=== PATIENT | female | born 1960 | race African-American/Black ===

== ENCOUNTER 2020-12-03 11:11 | Emergency (ER) | payer OTHER ==
[~2020-12-03] VITALS: Ht 154.9 cm; Wt 77.1 kg
[2020-12-03] MEDS ORDERED: ONDANSETRON 4 MG ODT PO ONE (11:15)
[2020-12-03 11:21] VITALS: BP 140/75
[2020-12-03] MEDS ORDERED: GLYCOPYRROLATE 1 MG TAB GT SCH (16:20)
[2020-12-03] MEDS ORDERED: MELATONIN 3 MG TAB GT PRN (16:20)
[2020-12-03] MEDS ORDERED: ACETAMINOPHEN EXTRA STRENGTH 500 MG TAB PEG ONE (16:20)
[2020-12-03] MEDS ORDERED: BACLOFEN 10 MG TAB GT SCH (17:00)
[2020-12-03] MEDS ORDERED: ACETAMINOPHEN EXTRA STRENGTH 500 MG TAB ONE (17:23)
[2020-12-03] MEDS ORDERED: CRUSHER, PILL MC ONE (17:29)
[2020-12-03 17:44] VITALS: BP 122/75
== END 2020-12-03 17:52 ==
LOC: EDBD 11:11 → MED 11:11
DX: R11.2 Nausea with vomiting, unspecified (principal); K94.23 Gastrostomy malfunction; F03.90 Unspecified dementia, unspecified severity, without behavioral disturbance, psychotic disturbance, mood disturbance, and anxiety; R13.10 Dysphagia, unspecified
CPT/HCPCS: 74240; 99284; Q0162; Q9967

== ENCOUNTER 2021-04-13 09:27 | Inpatient (IN) | payer OTHER, SELFPAY ==
[~2021-04-13] VITALS: Ht 149.9 cm; Wt 56.7 kg
[2021-04-13 09:27] VITALS: BP 95/60
[~2021-04-13 09:27] MED LIST: ACET-2619 GT; ASPI-1822 GT; BACL10TA4 GT; BISA-213 RC; CHLO118S2 TP; DEXT5SYR3 PO; DIT5 GT; FERR75LI22 GT; FLEPED RC; FLOR250 GT; INSU100I7 SQ; MAG-27 GT; MAGN400S60 GT; MELA5SGL GT; MERO1PDS8 IV; MIRABULK GT; MULT-2253 GT; MUPI2CRE22 NS; ROB1 GT; SLIDE SUBQ; VITA-16 GT
[2021-04-13] MEDS ORDERED: FLOR250 GT (10:09)
[2021-04-13] MEDS ORDERED: MELA1TAB32 GT (10:09)
[2021-04-13] MEDS ORDERED: ROB1 GT (10:09)
[2021-04-13] MEDS ORDERED: ACET-9882 GT (10:09)
[2021-04-13] MEDS ORDERED: CHOL100037 GT (10:09)
[2021-04-13] MEDS ORDERED: SCOP1PAT TP (10:09)
[2021-04-13] MEDS ORDERED: TAMS0.4C96 GT (10:09)
[2021-04-13] MEDS ORDERED: NACL 0.9% 1,000 ML IV ONE (10:25)
[2021-04-13 11:04] LABS: BASOPHILS # (AUTO) 0.1 K/uL (0.00-0.22); BASOPHILS % (AUTO) 0.8 % (0.0-2.0); EOSINOPHILS # (AUTO) 0.3 K/uL (0-0.4); EOSINOPHILS % (AUTO) 3.9 % (0.0-4.0); HEMATOCRIT 36.4 % (36-48); HEMOGLOBIN 11.4 g/dL (12.0-16.0); LYMPHOCYTES # (AUTO) 2.8 K/uL (2.5-16.5); MEAN CORPUSCULAR HEMOGLOBIN 26 pg (27-31); MEAN CORPUSCULAR HGB CONC 31 g/dL (33-37); MEAN CORPUSCULAR VOLUME 82.3 fL (80-94); MONOCYTES # (AUTO) 0.8 K/uL (0.8-1.0); MONOCYTES % (AUTO) 9.8 % (1.7-9.3); NEUTROPHILS # (AUTO) 4.3 K/uL (1.8-7.7); NEUTROPHILS % (AUTO) 51.5 % (42.2-75.2); PLATELET COUNT (AUTO) 351 K/uL (140-450); RED BLOOD CELL COUNT(AUTO) 4.43 MIL/uL (4.20-5.40); RED CELL DISTRIBUTION WIDTH 18.7 % (11.6-13.7); WHITE BLOOD COUNT (AUTO) 8.3 K/uL (4.8-10.8)
[2021-04-13 11:16] LABS: APPEARANCE,URINE CLOUDY (CLEAR); BILIRUBIN,URINE 2+ (NEGATIVE); BLOOD, URINE 3+ (NEGATIVE); LEUKOCYTE ESTERASE ,URINE 3+ (NEGATIVE); NITRITE, URINE POSITIVE (NEGATIVE); UGLUCOSE 1+ (NEGATIVE)
[2021-04-13 11:19] LABS: COLOR,URINE LIGHT PINK (YELLOW)
[2021-04-13 11:20] LABS: PROTHROMBIN TIME 10.3 secs (10.8-13.4)
[2021-04-13 11:23] LABS: ALBUMIN 2.5 g/dL (3.4-5.0); ANION GAP 16.3 (8-16); CARBON DIOXIDE 25.8 mmol/L (21-32); CREATININE 0.8 mg/dL (0.6-1.3); POTASSIUM 4.1 mmol/L (3.5-5.1); TOTAL BILIRUBIN 0.3 mg/dL (0.0-1.0)
[2021-04-13 11:26] LABS: WBC,URINE 20-60 /HPF (0-5)
[2021-04-13 11:27] LABS: RBC,URINE 80-100 /HPF (0-5)
[2021-04-13] MEDS ORDERED: ACETAMINOPHEN 325 MG TAB PO PRN (12:05)
[2021-04-13] MEDS ORDERED: ZOLPIDEM 5 MG TAB PO PRN (12:05)
[2021-04-13] MEDS: NACL 0.9% 1,000 ML IV SCH (12:05)
[2021-04-13] MEDS ORDERED: guaiFENesin DM 200/20 MG-10 ML 10 ML UDC PO PRN (12:05)
[2021-04-13] MEDS ORDERED: DOCUSATE SODIUM 100 MG GELCAP PO PRN (12:05)
[2021-04-13] MEDS ORDERED: ONDANSETRON 4 MG/2 ML VIAL IM/IVP PRN (12:05)
[2021-04-13] MEDS ORDERED: INSULIN LISPRO SLIDING SCALE 100 UNITS/ML VIAL SUBQ PRN (12:10)
[2021-04-13] MEDS ORDERED: DEXTROSE 50% 50 ML SYR IVP PRN (12:10)
[2021-04-13] MEDS ORDERED: ZOLPIDEM 5 MG TAB GT PRN (12:11)
[2021-04-13] MEDS ORDERED: ACETAMINOPHEN 650 MG/20.3 ML UDC GT PRN (12:15)
[2021-04-13] MEDS ORDERED: guaiFENesin DM 200/20 MG-10 ML 10 ML UDC GT PRN (12:18)
[2021-04-13] MEDS ORDERED: DOCUSATE 100 MG/10 ML UDC GT PRN (12:20)
[2021-04-13] MEDS ORDERED: POTASSIUM CHLORIDE 20% 40 MEQ/15 ML UDC GT PRN (12:25)
[2021-04-13 12:34] LABS: CHOL/HDL RATIO 4.6 (1-4.5); FREE T4 (FREE THYROXINE) 0.91 ng/dL (0.76-1.46); PHOSPHORUS 3.6 mg/dL (2.5-4.9); THYROID STIMULATING HORMONE 1.03 uIU/mL (0.34-3.74)
[2021-04-13 12:50] VITALS: BP 121/60
[2021-04-13] MEDS: PIPERACILLIN/TAZOBACTAM 3.375 GM in DEXTROSE 5% 50 ML IV SCH ×2 (13:00→21:09)
[2021-04-13] MEDS: BLOOD GLUCOSE MONITORING 1 DEV DEV FS SCH ×2 (16:30→21:08)
[2021-04-13 20:00] VITALS: BP 131/99
[2021-04-14] VITALS: BP 112/57
[2021-04-14] MEDS: NACL 0.9% 1,000 ML IV SCH ×2 (00:35→12:53)
[2021-04-14 04:00] VITALS: BP 111/60
[2021-04-14] MEDS: PIPERACILLIN/TAZOBACTAM 3.375 GM in DEXTROSE 5% 50 ML IV SCH ×3 (05:25→21:00)
[2021-04-14 05:39] LABS: ANION GAP 12.8 (8-16); CREATININE 0.8 mg/dL (0.6-1.3); POTASSIUM 3.8 mmol/L (3.5-5.1)
[2021-04-14 06:44] LABS: BASOPHILS # (AUTO) 0.1 K/uL (0.00-0.22); BASOPHILS % (AUTO) 0.9 % (0.0-2.0); EOSINOPHILS # (AUTO) 0.3 K/uL (0-0.4); EOSINOPHILS % (AUTO) 3.7 % (0.0-4.0); HEMATOCRIT 32.9 % (36-48); HEMOGLOBIN 10.4 g/dL (12.0-16.0); LYMPHOCYTES # (AUTO) 2.1 K/uL (2.5-16.5); LYMPHOCYTES % (AUTO) 27.8 % (20.5-51.1); MEAN CORPUSCULAR HEMOGLOBIN 26 pg (27-31); MEAN CORPUSCULAR HGB CONC 32 g/dL (33-37); MEAN CORPUSCULAR VOLUME 81.9 fL (80-94); MONOCYTES # (AUTO) 0.8 K/uL (0.8-1.0); MONOCYTES % (AUTO) 10.6 % (1.7-9.3); NEUTROPHILS # (AUTO) 4.3 K/uL (1.8-7.7); PLATELET COUNT (AUTO) 332 K/uL (140-450); RED BLOOD CELL COUNT(AUTO) 4.02 MIL/uL (4.20-5.40); RED CELL DISTRIBUTION WIDTH 19.1 % (11.6-13.7); WHITE BLOOD COUNT (AUTO) 7.6 K/uL (4.8-10.8)
[2021-04-14] MEDS: BLOOD GLUCOSE MONITORING 1 DEV DEV FS SCH ×4 (07:15→20:44)
[2021-04-14 08:00] VITALS: BP 104/62
[2021-04-14] MEDS: INSULIN LANTUS 100 UNITS/ML 10 ML VIAL SUBQ SCH (08:56)
[2021-04-14] MEDS ORDERED: INSULIN GLARGINE HUM REC ANLOG 5 UNIT SQ SCH (09:00)
[2021-04-14] MEDS ORDERED: PANTOPRAZOLE 40 MG TABEC PO SCH (09:00)
[2021-04-14] MEDS: LANSOPRAZOLE 30 MG CAPDR GT SCH (10:14)
[2021-04-14] MEDS: ASPIRIN 81 MG TAB.CHEW GT SCH (10:17)
[2021-04-14] MEDS: TAMSULOSIN 0.4 MG CAP GT SCH (10:18)
[2021-04-14 12:00] VITALS: BP 97/61
[2021-04-14] MEDS: HYDROcodone/APAP 7.5/325 MG 1 TAB GT PRN ×2 (14:49→20:24)
[2021-04-14 16:00] VITALS: BP 125/63
[2021-04-14 20:00] VITALS: BP 103/57
[2021-04-15] VITALS: BP 117/57
[2021-04-15] MEDS: NACL 0.9% 1,000 ML IV SCH ×2 (02:12→14:44)
[2021-04-15] MEDS: HYDROcodone/APAP 7.5/325 MG 1 TAB GT PRN ×2 (03:14→16:00)
[2021-04-15 04:00] VITALS: BP 135/79
[2021-04-15] MEDS: PIPERACILLIN/TAZOBACTAM 3.375 GM in DEXTROSE 5% 50 ML IV SCH ×3 (04:15→21:00)
[2021-04-15 06:07] LABS: T4 (THYROXINE) 5.8 ug/dL (4.5-12.0)
[2021-04-15 06:30] LABS: BASOPHILS % (AUTO) 0.5 % (0.0-2.0); EOSINOPHILS # (AUTO) 0.3 K/uL (0-0.4); EOSINOPHILS % (AUTO) 3.9 % (0.0-4.0); HEMATOCRIT 32.7 % (36-48); HEMOGLOBIN 10.2 g/dL (12.0-16.0); LYMPHOCYTES % (AUTO) 29.7 % (20.5-51.1); MEAN CORPUSCULAR HEMOGLOBIN 26 pg (27-31); MEAN CORPUSCULAR HGB CONC 31 g/dL (33-37); MEAN CORPUSCULAR VOLUME 82.3 fL (80-94); MONOCYTES # (AUTO) 0.7 K/uL (0.8-1.0); MONOCYTES % (AUTO) 10.1 % (1.7-9.3); NEUTROPHILS # (AUTO) 3.7 K/uL (1.8-7.7); NEUTROPHILS % (AUTO) 55.8 % (42.2-75.2); PLATELET COUNT (AUTO) 332 K/uL (140-450); RED BLOOD CELL COUNT(AUTO) 3.97 MIL/uL (4.20-5.40); RED CELL DISTRIBUTION WIDTH 18.4 % (11.6-13.7); WHITE BLOOD COUNT (AUTO) 6.7 K/uL (4.8-10.8)
[2021-04-15] MEDS: BLOOD GLUCOSE MONITORING 1 DEV DEV FS SCH ×4 (06:41→21:51)
[2021-04-15 07:17] LABS: CREATININE 0.8 mg/dL (0.6-1.3)
[2021-04-15] MEDS: INSULIN LANTUS 100 UNITS/ML 10 ML VIAL SUBQ SCH (07:50)
[2021-04-15 08:00] VITALS: BP 98/48
[2021-04-15] MEDS: LANSOPRAZOLE 30 MG CAPDR GT SCH (08:17)
[2021-04-15] MEDS: ASPIRIN 81 MG TAB.CHEW GT SCH (08:17)
[2021-04-15] MEDS: TAMSULOSIN 0.4 MG CAP GT SCH (08:17)
[2021-04-15 12:00] VITALS: BP 113/61
[2021-04-15 16:00] VITALS: BP 128/57
[2021-04-15] MEDS: DEXT 5% /NACL 0.9% 1,000 ML IV SCH (18:21)
[2021-04-15 20:00] VITALS: BP 118/95
[2021-04-16] VITALS: BP 121/79
[2021-04-16 04:00] VITALS: BP 99/49
[2021-04-16] MEDS: PIPERACILLIN/TAZOBACTAM 3.375 GM in DEXTROSE 5% 50 ML IV SCH ×3 (05:19→20:53)
[2021-04-16 05:38] LABS: BASOPHILS % (AUTO) 0.5 % (0.0-2.0); EOSINOPHILS # (AUTO) 0.3 K/uL (0-0.4); EOSINOPHILS % (AUTO) 4.7 % (0.0-4.0); HEMATOCRIT 33.3 % (36-48); HEMOGLOBIN 10.4 g/dL (12.0-16.0); LYMPHOCYTES # (AUTO) 1.9 K/uL (2.5-16.5); LYMPHOCYTES % (AUTO) 33.1 % (20.5-51.1); MEAN CORPUSCULAR HEMOGLOBIN 26 pg (27-31); MEAN CORPUSCULAR HGB CONC 31 g/dL (33-37); MEAN CORPUSCULAR VOLUME 83.4 fL (80-94); MONOCYTES # (AUTO) 0.6 K/uL (0.8-1.0); MONOCYTES % (AUTO) 10.8 % (1.7-9.3); NEUTROPHILS % (AUTO) 50.9 % (42.2-75.2); PLATELET COUNT (AUTO) 346 K/uL (140-450); RED CELL DISTRIBUTION WIDTH 18.6 % (11.6-13.7); WHITE BLOOD COUNT (AUTO) 5.8 K/uL (4.8-10.8)
[2021-04-16 05:45] LABS: CREATININE 0.7 mg/dL (0.6-1.3); POTASSIUM 3.8 mmol/L (3.5-5.1)
[2021-04-16] MEDS: BLOOD GLUCOSE MONITORING 1 DEV DEV FS SCH ×4 (05:54→20:40)
[2021-04-16 06:44] LABS: ANION GAP 15.7 (8-16); CARBON DIOXIDE 20.1 mmol/L (21-32)
[2021-04-16] MEDS: DEXT 5% /NACL 0.9% 1,000 ML IV SCH ×2 (07:53→15:14)
[2021-04-16 08:00] VITALS: BP 138/67
[2021-04-16] MEDS: LANSOPRAZOLE 30 MG CAPDR GT SCH (09:00)
[2021-04-16] MEDS: TAMSULOSIN 0.4 MG CAP GT SCH (09:00)
[2021-04-16] MEDS: ASPIRIN 81 MG TAB.CHEW GT SCH (09:00)
[2021-04-16] MEDS: INSULIN LANTUS 100 UNITS/ML 10 ML VIAL SUBQ SCH (09:00)
[2021-04-16 12:00] VITALS: BP 131/54
[2021-04-16 13:25] LABS: PROTHROMBIN TIME 10.5 secs (10.8-13.4)
[2021-04-16 16:00] VITALS: BP 138/78
[2021-04-16 20:00] VITALS: BP 129/72
[2021-04-17] VITALS: BP 122/73
[2021-04-17 04:00] VITALS: BP 127/74
[2021-04-17] MEDS: PIPERACILLIN/TAZOBACTAM 3.375 GM in DEXTROSE 5% 50 ML IV SCH ×3 (05:34→21:04)
[2021-04-17 05:52] LABS: ANION GAP 12.6 (8-16); CREATININE 0.7 mg/dL (0.6-1.3); POTASSIUM 3.6 mmol/L (3.5-5.1)
[2021-04-17 06:47] LABS: BASOPHILS % (AUTO) 0.8 % (0.0-2.0); EOSINOPHILS # (AUTO) 0.3 K/uL (0-0.4); EOSINOPHILS % (AUTO) 4.6 % (0.0-4.0); HEMATOCRIT 33.7 % (36-48); HEMOGLOBIN 10.6 g/dL (12.0-16.0); LYMPHOCYTES # (AUTO) 2.4 K/uL (2.5-16.5); LYMPHOCYTES % (AUTO) 36.8 % (20.5-51.1); MEAN CORPUSCULAR HEMOGLOBIN 26 pg (27-31); MEAN CORPUSCULAR HGB CONC 31 g/dL (33-37); MEAN CORPUSCULAR VOLUME 82.7 fL (80-94); MONOCYTES # (AUTO) 0.6 K/uL (0.8-1.0); MONOCYTES % (AUTO) 9.1 % (1.7-9.3); NEUTROPHILS # (AUTO) 3.2 K/uL (1.8-7.7); NEUTROPHILS % (AUTO) 48.7 % (42.2-75.2); PLATELET COUNT (AUTO) 369 K/uL (140-450); RED BLOOD CELL COUNT(AUTO) 4.08 MIL/uL (4.20-5.40); RED CELL DISTRIBUTION WIDTH 18.4 % (11.6-13.7); WHITE BLOOD COUNT (AUTO) 6.5 K/uL (4.8-10.8)
[2021-04-17] MEDS: BLOOD GLUCOSE MONITORING 1 DEV DEV FS SCH ×4 (07:30→21:04)
[2021-04-17] MEDS: DEXT 5% /NACL 0.9% 1,000 ML IV SCH ×2 (07:40→20:10)
[2021-04-17] MEDS: INSULIN LANTUS 100 UNITS/ML 10 ML VIAL SUBQ SCH (09:00)
[2021-04-17] MEDS: TAMSULOSIN 0.4 MG CAP GT SCH (09:00)
[2021-04-17] MEDS: LANSOPRAZOLE 30 MG CAPDR GT SCH (09:00)
[2021-04-17] MEDS: ASPIRIN 81 MG TAB.CHEW GT SCH (09:00)
[2021-04-17 13:45] VITALS: BP 112/76
[2021-04-17] MEDS ORDERED: AMOX-999 PO (14:37)
[2021-04-17 16:00] VITALS: BP 136/100
[2021-04-17 20:00] VITALS: BP 135/83
[2021-04-18] VITALS: BP 131/98
[2021-04-18] MEDS: DEXT 5% /NACL 0.9% 1,000 ML IV SCH (01:52)
[2021-04-18 03:56] VITALS: BP 139/77
[2021-04-18] MEDS: BLOOD GLUCOSE MONITORING 1 DEV DEV FS SCH ×2 (05:47→12:12)
[2021-04-18 05:48] LABS: ANION GAP 15.7 (8-16); CARBON DIOXIDE 20.6 mmol/L (21-32); CREATININE 0.8 mg/dL (0.6-1.3); POTASSIUM 3.3 mmol/L (3.5-5.1)
[2021-04-18 06:08] LABS: BASOPHILS % (AUTO) 0.8 % (0.0-2.0); EOSINOPHILS # (AUTO) 0.3 K/uL (0-0.4); EOSINOPHILS % (AUTO) 5.6 % (0.0-4.0); HEMATOCRIT 34.7 % (36-48); HEMOGLOBIN 10.8 g/dL (12.0-16.0); LYMPHOCYTES # (AUTO) 1.8 K/uL (2.5-16.5); LYMPHOCYTES % (AUTO) 29.2 % (20.5-51.1); MEAN CORPUSCULAR HEMOGLOBIN 26 pg (27-31); MEAN CORPUSCULAR HGB CONC 31 g/dL (33-37); MEAN CORPUSCULAR VOLUME 82.7 fL (80-94); MONOCYTES # (AUTO) 0.6 K/uL (0.8-1.0); MONOCYTES % (AUTO) 9.7 % (1.7-9.3); NEUTROPHILS # (AUTO) 3.4 K/uL (1.8-7.7); NEUTROPHILS % (AUTO) 54.7 % (42.2-75.2); PLATELET COUNT (AUTO) 429 K/uL (140-450); RED BLOOD CELL COUNT(AUTO) 4.19 MIL/uL (4.20-5.40); RED CELL DISTRIBUTION WIDTH 18.3 % (11.6-13.7); WHITE BLOOD COUNT (AUTO) 6.1 K/uL (4.8-10.8)
[2021-04-18 08:00] VITALS: BP 122/81
[2021-04-18] MEDS: ASPIRIN 81 MG TAB.CHEW GT SCH (08:53)
[2021-04-18] MEDS: TAMSULOSIN 0.4 MG CAP GT SCH (08:53)
[2021-04-18] MEDS: LANSOPRAZOLE 30 MG CAPDR GT SCH (08:53)
[2021-04-18] MEDS: INSULIN LANTUS 100 UNITS/ML 10 ML VIAL SUBQ SCH (08:54)
[2021-04-18 12:00] VITALS: BP 134/68
[2021-04-18] MEDS ORDERED: PIPERACILLIN/TAZOBACTAM 3.375 GM in DEXTROSE 5% 50 ML IV SCH (13:00)
== END 2021-04-18 14:45 | DRG 698 ==
LOC: MED 09:27 → MTU 12:26
PROVIDERS: ADMIT Family Medicine; ATTEND Family Medicine
PROC: 0T25X0Z Change Drainage Device in Kidney, External Approach (ICD-10-PCS; principal; 2021-04-17)
DX: N99.522 Malfunction of incontinent external stoma of urinary tract (principal); E43 Unspecified severe protein-calorie malnutrition; G93.41 Metabolic encephalopathy; R53.2 Functional quadriplegia; E87.0 Hyperosmolality and hypernatremia; N13.6 Pyonephrosis; N13.9 Obstructive and reflux uropathy, unspecified; Z20.822 Contact with and (suspected) exposure to COVID-19; Z68.25 Body mass index [BMI] 25.0-25.9, adult; F03.90 Unspecified dementia, unspecified severity, without behavioral disturbance, psychotic disturbance, mood disturbance, and anxiety; E11.9 Type 2 diabetes mellitus without complications; I10 Essential (primary) hypertension; R31.9 Hematuria, unspecified; E86.0 Dehydration; K76.89 Other specified diseases of liver; E78.5 Hyperlipidemia, unspecified; Y83.8 Other surgical procedures as the cause of abnormal reaction of the patient, or of later complication, without mention of misadventure at the time of the procedure; K42.9 Umbilical hernia without obstruction or gangrene; G35 Multiple sclerosis; R13.10 Dysphagia, unspecified; Z86.73 Personal history of transient ischemic attack (TIA), and cerebral infarction without residual deficits; Z79.82 Long term (current) use of aspirin; Z79.899 Other long term (current) drug therapy; Z93.1 Gastrostomy status
CPT/HCPCS: 36415; 71045; 80048; 80053; 81001; 82150; 82948; 83036; 83690; 83735; 83880; 84100; 84436; 84439; 84443; 84479; 84484; 85025; 85610; 85730; 87081; 87086; 96360; 96361; 99285; J1644; J1815; J2543; J7060

== ENCOUNTER 2021-12-20 17:08 | Inpatient (IN) | payer OTHER, SELFPAY ==
[~2021-12-20] VITALS: Ht 152.4 cm; Wt 48.5 kg
[~2021-12-20 17:08] MED LIST changes: +ACET-9882 GT; +AMOX-999 PO; -CHLO118S2 TP; +CHOL100037 GT; -FERR75LI22 GT; -FLEPED RC; -MAG-27 GT; +MELA1TAB32 GT; -MELA5SGL GT; -MERO1PDS8 IV; -MULT-2253 GT; -MUPI2CRE22 NS; +SCOP0.333 TP; -SLIDE SUBQ; +TAMS0.4C96 GT; -VITA-16 GT
--- NOTE | 2021-12-20 17:10 | NUR ---
BIBA TO ER BED 2
[2021-12-20 17:15] VITALS: BP 111/65
[2021-12-20] MEDS ORDERED: NACL 0.9% 1,000 ML IV ONE ×2 (17:25→18:00)
[2021-12-20] MEDS ORDERED: VANCOMYCIN 1,000 MG in DEXTROSE 5% 250 ML IV ONE (18:00)
[2021-12-20] MEDS ORDERED: PIPERACILLIN/TAZOBACTAM 3.375 GM in DEXTROSE 5% 50 ML IV ONE (18:00)
[2021-12-20 18:22] LABS: MAGNESIUM 1.9 mg/dL (1.8-2.4); PHOSPHORUS 2.7 mg/dL (2.5-4.9)
[2021-12-20 18:23] LABS: ALBUMIN 2.3 g/dL (3.4-5.0); ANION GAP 11.8 (8-16); CREATININE 1.1 mg/dL (0.6-1.3); TOTAL BILIRUBIN 0.5 mg/dL (0.0-1.0)
[2021-12-20 18:32] LABS: POTASSIUM 2.8 mmol/L (3.5-5.1)
[2021-12-20 18:40] LABS: PROTHROMBIN TIME 12.1 secs (10.8-13.4)
[2021-12-20] MEDS ORDERED: VANCOMYCIN 1,000 MG VIAL ONE (18:41)
[2021-12-20] MEDS ORDERED: PIPERACILLIN/TAZOBACTAM 3.375 GM VIAL IV ONE (18:42)
[2021-12-20] MEDS ORDERED: ACETAMINOPHEN 650 MG SUPP RC ONE (18:50)
[2021-12-20 19:02] LABS: BASOPHILS # (AUTO) 0.1 K/uL (0.00-0.22); BASOPHILS % (AUTO) 0.5 % (0.0-2.0); EOSINOPHILS % (AUTO) 0.1 % (0.0-4.0); HEMATOCRIT 42.5 % (36-48); HEMOGLOBIN 13.5 g/dL (12.0-16.0); LYMPHOCYTES # (AUTO) 3.9 K/uL (2.5-16.5); LYMPHOCYTES % (AUTO) 30.3 % (20.5-51.1); MEAN CORPUSCULAR HEMOGLOBIN 26 pg (27-31); MEAN CORPUSCULAR HGB CONC 32 g/dL (33-37); MEAN CORPUSCULAR VOLUME 82.5 fL (80-94); MONOCYTES % (AUTO) 7.8 % (1.7-9.3); NEUTROPHILS % (AUTO) 61.3 % (42.2-75.2); PLATELET COUNT (AUTO) 394 K/uL (140-450); RED BLOOD CELL COUNT(AUTO) 5.15 MIL/uL (4.20-5.40); RED CELL DISTRIBUTION WIDTH 19.7 % (11.6-13.7)
--- NOTE | 2021-12-20 19:30 | NUR ---
Received report from Igor JOHANSEN for continuation of care.
--- NOTE | 2021-12-20 19:30 | NUR ---
REPORT GIVEN TO HAILY CESPEDES
[2021-12-20] MEDS ORDERED: NACL 0.9% 2,000 ML IV ONE (19:35)
--- NOTE | 2021-12-20 19:52 | NUR ---
provided pericare for patient, placed chucks, and diaper- patient tolerated well.
--- NOTE | 2021-12-20 20:45 | NUR ---
Patient will be admitted to care of Irina ETIENNE. Admited to telemetry. Will go to room 121a. Belongings list completed. Report to Nanda JOHANSEN.
--- NOTE | 2021-12-20 21:09 | NUR ---
patient tx to the floor
[2021-12-20 21:30] VITALS: BP 112/65
--- NOTE | 2021-12-20 21:30 | NUR ---
RECEIVED REPORT FROM PICKLING SOLUTION MAKER NURSE OVER THE PHONE, PT ARRIVED VIA GURNEY SHE IS AOX1 AWARE OF PERSON ONLY. SHE ARRIVED ON 3 LITERS OF 02 BUT WAS SOON DOWNGRADED TO 2 LITERS BY RT. PT HERE FOR SEPSIS PNA, LUNG SOUNDS ARE DIMINISHED. PT HAS NO C/O VOICED OF PAIN. SHE HAS A LEFT DTI ON HER HEEL WHICH MEASURES 4CM BY 4 CM. IT IS A CLOSED WOUND THAT IS BLACK. PT ALSO HAS CONTRACTIONS OF HER BILATERAL LOWER LEGS WITH SOME HEALED PRESSURE WOUNDS. ON HER HIP AND LEG. PT ALSO HAS A G TUBE WHICH IS INTACT AND A 22G ON THE RIGHT WRIST RUNNING A BOLUS. V/S FOLLOWS: T 98.4 P 102 R20 B/P 112/65 02 98% WITH 2 LITERS VIA N/C. ALL FALLS PRECAUTIONS IN PLACE.
--- NOTE | 2021-12-20 22:00 | NUR ---
SPOKE WITH PRIMARY MD REGARDING PT DECREASED POTASSIUM LEVEL OF 2.8. WELL REQUEST FOR ADMISSION ORDERS.
[2021-12-20 22:38] LABS: APPEARANCE,URINE CLOUDY (CLEAR); BILIRUBIN,URINE NEGATIVE (NEGATIVE); BLOOD, URINE 2+ (NEGATIVE); COLOR,URINE YELLOW (YELLOW); LEUKOCYTE ESTERASE ,URINE 3+ (NEGATIVE); NITRITE, URINE NEGATIVE (NEGATIVE); UGLUCOSE NEGATIVE (NEGATIVE)
[2021-12-20 22:40] LABS: WBC,URINE TOO MANY TO COUNT /HPF (0-5)
--- NOTE | 2021-12-20 23:00 | NUR ---
COULD NOT ADMINISTER ORDERED RECONSTITUTED K RIDER WITH LIDOCAINE, NO PHARMACY DURING THE NIGHT. NEW ORDER NOTED FOR K-RIDER 40 MEQ TOTAL. (2 BAGS).
[2021-12-20] MEDS ORDERED: guaiFENesin DM 200/20 MG-10 ML 10 ML UDC GT PRN (23:15)
[2021-12-20] MEDS ORDERED: ONDANSETRON 4 MG/2 ML VIAL IM/IVP PRN (23:15)
[2021-12-20] MEDS ORDERED: POLYETHYLENE GLYCOL 17 GM/PKT GT PRN (23:15)
[2021-12-20] MEDS ORDERED: POTASSIUM CHLORIDE 10 MEQ TABER PO PRN (23:15)
[2021-12-20] MEDS ORDERED: NACL 0.9% 1,000 ML IV SCH (23:15)
[2021-12-20] MEDS ORDERED: bisacodyL 10 MG SUPP RC PRN (23:15)
[2021-12-20] MEDS ORDERED: HYDROcodone/APAP 5/325 MG 1 TAB TAB PO PRN (23:15)
[2021-12-20] MEDS ORDERED: MORPHINE SULFATE 2 MG/ML SYR IVP PRN (23:15)
[2021-12-20] MEDS ORDERED: DOCUSATE SODIUM 100 MG GELCAP PO PRN (23:15)
[2021-12-20] MEDS ORDERED: MELATONIN 3 MG TAB GT PRN (23:15)
[2021-12-20] MEDS ORDERED: SODIUM PHOS / POTASSIUM PHOS 1 PKT PDR PO PRN (23:15)
[2021-12-20] MEDS ORDERED: MAGNESIUM OXIDE 400 MG TAB PO PRN (23:15)
[2021-12-20] MEDS ORDERED: ACETAMINOPHEN 325 MG TAB PO PRN (23:15)
[2021-12-20] MEDS ORDERED: MAGNESIUM HYDROXIDE 2400 MG/30 ML UDC GT PRN (23:15)
[2021-12-20] MEDS ORDERED: VANCOMYCIN PER PHARMACY MC PRN (23:20)
[2021-12-20] MEDS ORDERED: POTASSIUM CHLORIDE 40 MEQ, LIDOCAINE MPF 1% 25 MG in NACL 0.9% 250 ML IV SCH (23:20)
[2021-12-21] VITALS: BP 114/89
--- NOTE | 2021-12-21 00:30 | NUR ---
ORDERED ALEXA NÚÑEZ 1ST BAG OF K-RIDER NIYA. EDUCATION PROVIDED TO PT REGARDING ORDERED MEDICATION, WITH REINFORCEMENT. PT VERBALIZED UNDERSTANDING. SHE DENIES ANY PAIN, ALL REQUESTED NEEDS ATTENDED BY STAFF. PT TURNED AND REPOSITIONED IN BED. ALL ORDERED PRECAUTIONS IN PLACE.
[2021-12-21] MEDS ORDERED: PIPERACILLIN/TAZOBACTAM 2.25 GM VIAL IV ONE ×2 (01:21→05:55)
[2021-12-21 01:27] LABS: MAGNESIUM 1.7 mg/dL (1.8-2.4); PHOSPHORUS 3.3 mg/dL (2.5-4.9)
[2021-12-21] MEDS: PIPERACILLIN/TAZOBACTAM 2.25 GM in DEXTROSE 5% 50 ML IV SCH ×4 (01:32→17:14)
[2021-12-21] MEDS ORDERED: KCL 20 MEQ/WATER INJ PREMIX 100 ML IV ONE (02:06)
[2021-12-21] MEDS ORDERED: KCL 20 MEQ/WATER INJ PREMIX 200 ML IV ONE (03:05)
[2021-12-21 04:00] VITALS: BP 130/74
[2021-12-21 06:09] LABS: BASOPHILS % (AUTO) 0.4 % (0.0-2.0); EOSINOPHILS # (AUTO) 0.2 K/uL (0-0.4); EOSINOPHILS % (AUTO) 2.2 % (0.0-4.0); HEMATOCRIT 35.3 % (36-48); LYMPHOCYTES # (AUTO) 3.1 K/uL (2.5-16.5); LYMPHOCYTES % (AUTO) 33.3 % (20.5-51.1); MEAN CORPUSCULAR HEMOGLOBIN 26 pg (27-31); MEAN CORPUSCULAR HGB CONC 31 g/dL (33-37); MEAN CORPUSCULAR VOLUME 84.1 fL (80-94); MONOCYTES # (AUTO) 1.1 K/uL (0.8-1.0); MONOCYTES % (AUTO) 11.9 % (1.7-9.3); NEUTROPHILS # (AUTO) 4.8 K/uL (1.8-7.7); NEUTROPHILS % (AUTO) 52.2 % (42.2-75.2); PLATELET COUNT (AUTO) 295 K/uL (140-450); RED CELL DISTRIBUTION WIDTH 19.7 % (11.6-13.7); WHITE BLOOD COUNT (AUTO) 9.2 K/uL (4.8-10.8)
[2021-12-21 06:14] LABS: ANION GAP 8.8 (8-16); CARBON DIOXIDE 30.1 mmol/L (21-32); CREATININE 0.9 mg/dL (0.6-1.3)
[2021-12-21 06:21] LABS: POTASSIUM 2.9 mmol/L (3.5-5.1)
--- NOTE | 2021-12-21 06:30 | NUR ---
2ND BAG OF POTASSIUM IN PROGRESS, ORDERED ZOSYN HUNG AND RUNNING ORDERED. RECEIVED CRITICAL LAB OF POTASSIUM 2.9 COVERAGE IN PROGRESS.
--- NOTE | 2021-12-21 07:30 | NUR ---
RECEIVED REPORT FROM SOLUTION ANALYST NURSE FOR CONTINUITY OF CARE, POC DISCUSSED. PT IS STABLE IN BED WITH NO ACUTE S/S OF DISTRESS, PT IS ON 2L NC WITH CHEST RISING AND FALLING EVEN AND UNLABORED. PT HAS A GTUBE. ALL SAFETY MEASURES IN PLACE, CALL LIGHT WITHIN REACH. WILL CONTINUE TO MONITOR.
[2021-12-21 08:00] VITALS: BP 95/59
[2021-12-21] MEDS ORDERED: CRUSHER, PILL MC ONE (08:12)
[2021-12-21] MEDS: ASPIRIN 81 MG TAB.CHEW GT SCH (08:19)
[2021-12-21] MEDS: GLYCOPYRROLATE 1 MG TAB GT SCH ×2 (08:19→20:31)
[2021-12-21] MEDS: OXYBUTYNIN 5 MG TAB GT SCH (08:21)
[2021-12-21] MEDS: BACLOFEN 10 MG TAB GT SCH ×3 (08:22→16:46)
[2021-12-21] MEDS: PANTOPRAZOLE 40 MG INJ VIAL IVP SCH (08:23)
[2021-12-21] MEDS: TAMSULOSIN 0.4 MG CAP GT SCH (08:23)
[2021-12-21] MEDS: INSULIN LANTUS 100 UNITS/ML 10 ML VIAL SUBQ SCH (08:32)
--- NOTE | 2021-12-21 09:00 | NUR ---
JOSELYN MEDICATION ADMINISTERED PER MD ORDER, PT TOLERATED ADMINISTRATION. PT RESIDUAL 5CC, FLUSHED WITH 10CC PRIOR TO AND AFTER ADMINISTRATION. PT DENIES PAIN AT THIS TIME. A&OX2. IV PATENT AND INTACT. ALL SAFETY MEASURES IN PLACE, CALL LIGHT WITHIN REACH. WILL CONTINUE TO MONITOR.
[2021-12-21] MEDS: VANCOMYCIN 1,000 MG in DEXTROSE 5% 250 ML IV SCH (09:46)
--- NOTE | 2021-12-21 10:21 | NUR ---
PATIENT HAS BEEN SCREENED AND CATEGORIZED HIGH NUTRITION RISK. PATIENT WILL BE SEEN WITHIN 1-2 DAYS OF ADMISSION 12/21/21-12/22/21 RECEIVED REFERRAL FOR DYSPHAGIA AND TUBE FEEDING. IBAN [address]
[2021-12-21] MEDS ORDERED: DEXTROSE 50% 50 ML SYR IVP PRN (10:25)
[2021-12-21] MEDS ORDERED: DEXTROSE 10% 250 ML IV PRN (10:30)
--- NOTE | 2021-12-21 11:16 | NUR ---
12/21/21 RD INITIAL ASSESSMENT COMPLETED PLEASE REFER TO NUTRITION ASSESSMENT UNDER CARE ACTIVITY FOR ESTIMATED NUTRITIONAL NEEDS. 1. WHEN/IF MEDICALLY APPROPRIATE, RECOMMEND GLUCERNA WITH A GOAL RATE 50 ML/HR -FWF: 100 ML Q6H OR PER MD -START AT 20 ML/HR AND INCREASE BY 20 ML Q6H TOLERATED -WILL PROVIDE 1440 KCAL AND 72 GM PROTEIN, MEETING ESTIMATED NUTRITION NEEDS 2. MONITOR NUTRITION-RELATED LAB VALUES AND GASTRIC RESIDUALS 3. RD TO FOLLOW-UP 2-3 DAYS, HIGH RISK MILE FRANK RD
[2021-12-21] MEDS: POTASSIUM CHL 20 MEQ/ 1/2 NS 1,000 ML IV SCH (11:24)
[2021-12-21] MEDS: BLOOD GLUCOSE MONITORING 1 DEV DEV FS SCH ×3 (11:33→20:30)
[2021-12-21] MEDS: INSULIN LISPRO SLIDING SCALE 100 UNITS/ML VIAL SUBQ PRN (11:37)
[2021-12-21 12:00] VITALS: BP 115/78
--- NOTE | 2021-12-21 12:00 | NUR ---
BLOOD GLUCOSE IS 172, 2 UNITS OF INSULIN ADMINISTERED PER SLIDING SCALE. JOSELYN MEDICATION ADMINISTERED PER MD ORDER, PT TOLERATED ADMINISTRATION. ALL SAFETY MEASURES IN PLACE, CALL LIGHT WITHIN REACH. WILL CONTINUE TO MONITOR.
--- NOTE | 2021-12-21 13:00 | NUR ---
JOSELYN MEDICATION ADMINISTERED PER MD ORDER, PT TOLERATED ADMINISTRATION. PT CLEANED AND REPOSITIONED. 1BM NOTED
[2021-12-21 16:00] VITALS: BP 156/78
--- NOTE | 2021-12-21 17:00 | NUR ---
JOSELYN MEDICATION ADMINISTERED PER MD ORDER, PT TOLERATED ADMINISTRATION. TUBE FEEDING STARTED.
--- NOTE | 2021-12-21 18:42 | NUR ---
PT HAS BEEN CLEANED AND REPOSITIONED. ALL NEEDS MET THROUGHOUT SHIFT. SON AT BEDSIDE. WILL ENDORSE TO MACHINE STRAW HAT PRESSER NURSE
--- NOTE | 2021-12-21 19:40 | NUR ---
RECEIVED PT FROM AM SHIFT NURSE FOR CONTINUITY OF CARE.PT IS STABLE IN BED NO DISTRESS NOTED.ON 2 L VIA NC,BREATHING EVEN AND UNLABORED.GTUBE INTACT RUNNING AT 20 ML/HR.ALL SAFETY MEASURES IN PLACE.
[2021-12-21 20:00] VITALS: BP 96/43
--- NOTE | 2021-12-21 21:41 | NUR ---
ALL MEDS GIVEN. BLD GLUOSE 84, NO INSULIN GIVEN. NO DISTRESS NOTED.
--- NOTE | 2021-12-21 23:30 | NUR ---
PATIENTS BP RUNNING 76/44 TO 96/43[address] TEXT[address] POTTER . GAVE AN ORDER FOR STAT CBC AND BMP. ORDER PLACED AND FOLLOWED UP WITH THE LAB. WILL UPDATE DR POTTER OF THE RESULTS.
[2021-12-22] VITALS: BP 145/85
--- NOTE | 2021-12-22 | NUR ---
PATIENT BP RUNNING AT 145/85. CBC AND BMP RESULTS STILL PENDING. PATIENT ASLEEP AT THIS TIME,NO SIGNS OF DISTRESS NOTED.
[2021-12-22 00:29] LABS: BASOPHILS % (AUTO) 0.6 % (0.0-2.0); EOSINOPHILS # (AUTO) 0.4 K/uL (0-0.4); EOSINOPHILS % (AUTO) 5.3 % (0.0-4.0); HEMATOCRIT 34.3 % (36-48); HEMOGLOBIN 10.9 g/dL (12.0-16.0); LYMPHOCYTES # (AUTO) 2.2 K/uL (2.5-16.5); LYMPHOCYTES % (AUTO) 31.8 % (20.5-51.1); MEAN CORPUSCULAR HEMOGLOBIN 26 pg (27-31); MEAN CORPUSCULAR HGB CONC 32 g/dL (33-37); MEAN CORPUSCULAR VOLUME 83.3 fL (80-94); MONOCYTES # (AUTO) 0.6 K/uL (0.8-1.0); MONOCYTES % (AUTO) 8.3 % (1.7-9.3); NEUTROPHILS # (AUTO) 3.7 K/uL (1.8-7.7); PLATELET COUNT (AUTO) 288 K/uL (140-450); RED BLOOD CELL COUNT(AUTO) 4.12 MIL/uL (4.20-5.40); RED CELL DISTRIBUTION WIDTH 19.8 % (11.6-13.7); WHITE BLOOD COUNT (AUTO) 6.9 K/uL (4.8-10.8)
--- NOTE | 2021-12-22 00:30 | NUR ---
PT WAS TURNED, CHANGED AND REPOSITIONED IN BED. ORAL CARE PROVIDED. PT V/S FOLLOWS: T 98.4 P P 75 R 20 B/P 145/85 02 99% WITH 2 LITERS VIA N/C. NO RESIDUAL NOTED FOR G TUBE. RATE INCREASED WILL MONITOR FOR RESIDUALS. ALL ORDERED PRECAUTIONS IN PLACE.
[2021-12-22 00:43] LABS: ANION GAP 9.9 (8-16); CARBON DIOXIDE 28.3 mmol/L (21-32); CREATININE 0.8 mg/dL (0.6-1.3); POTASSIUM 3.2 mmol/L (3.5-5.1)
--- NOTE | 2021-12-22 02:00 | NUR ---
PT IN BED ASLEEP. SHE IS RUNNING GLUCERNA 1.2 INCREASED TO GOAL OF 50MLS/HR. H20 FLUSH 100 Q 6HRS. WILL CONTINUE TO MONITOR FOR RESIDUALS.
[2021-12-22] MEDS: POTASSIUM CHL 20 MEQ/ 1/2 NS 1,000 ML IV SCH ×2 (03:36→18:47)
[2021-12-22 04:00] VITALS: BP 95/55
--- NOTE | 2021-12-22 04:00 | NUR ---
PT WAS TURNED, CHANGED AND REPOSITIONED IN BED. V/S FOLLOWS: T 98.3 P 75 R 20 B/P 95/65 02 99% ON 2 LITERS N/C.
[2021-12-22] MEDS: PIPERACILLIN/TAZOBACTAM 2.25 GM in DEXTROSE 5% 50 ML IV SCH ×5 (06:00→18:21)
--- NOTE | 2021-12-22 06:00 | NUR ---
NEW IV SITE PROVIDED IN THE RIGHT F/A 22G (OLD IV SITE FELL OUT ). IV ABT HUNG AND RUNNING ORDERED.
[2021-12-22] MEDS: BLOOD GLUCOSE MONITORING 1 DEV DEV FS SCH ×4 (07:07→20:11)
[2021-12-22 07:25] LABS: BASOPHILS % (AUTO) 0.3 % (0.0-2.0); EOSINOPHILS # (AUTO) 0.4 K/uL (0-0.4); EOSINOPHILS % (AUTO) 6.1 % (0.0-4.0); HEMATOCRIT 37.5 % (36-48); HEMOGLOBIN 11.4 g/dL (12.0-16.0); LYMPHOCYTES % (AUTO) 31.1 % (20.5-51.1); MEAN CORPUSCULAR HEMOGLOBIN 26 pg (27-31); MEAN CORPUSCULAR HGB CONC 30 g/dL (33-37); MEAN CORPUSCULAR VOLUME 86.7 fL (80-94); MONOCYTES # (AUTO) 0.6 K/uL (0.8-1.0); MONOCYTES % (AUTO) 9.1 % (1.7-9.3); NEUTROPHILS # (AUTO) 3.4 K/uL (1.8-7.7); NEUTROPHILS % (AUTO) 53.4 % (42.2-75.2); PLATELET COUNT (AUTO) 264 K/uL (140-450); RED BLOOD CELL COUNT(AUTO) 4.33 MIL/uL (4.20-5.40); RED CELL DISTRIBUTION WIDTH 20.7 % (11.6-13.7); WHITE BLOOD COUNT (AUTO) 6.3 K/uL (4.8-10.8)
--- NOTE | 2021-12-22 07:30 | NUR ---
RECEIVED PATIENT FROM CLIENT RELATIONSHIP EXECUTIVE NURSE FOR CONTINUITY OF CARE. PATIENT IS AWAKE, RESTING IN BED, A/O X2. RESPIRATORY EVEN AND UNLABORED, ON 2L OXYGEN VIA NC. NO SIGN OF DISTRESS NOTED. SKIN WARM, DRY, NON DIAPHORETIC. IV ON LEFT HAND 22G, INTACT AND PATENT, IS INFUSING FLUID ODER. G-TUBE IN PLACE, IS RUNNING WITH GLUCERNA 1.2 @50ML/HR, WATER FLUSH 100ML Q6H. PATIENT DENIES ANY PAIN OR DISCOMFORT. ABLE TO MAKE NEED KNOWN. PLAN OF CARE DISCUSSED, PATIENT VERBALIZED UNDERSTANDING. PRECAUTION IN PLACE. CALL LIGHT WITHIN REACH. WILL CONTINUE TO MONITOR.
[2021-12-22 07:48] LABS: CARBON DIOXIDE 27.5 mmol/L (21-32); CREATININE 0.8 mg/dL (0.6-1.3); POTASSIUM 3.5 mmol/L (3.5-5.1)
[2021-12-22 08:00] VITALS: BP 105/70
[2021-12-22] MEDS: TAMSULOSIN 0.4 MG CAP GT SCH (09:00)
[2021-12-22] MEDS: ASPIRIN 81 MG TAB.CHEW GT SCH (09:05)
[2021-12-22] MEDS: PANTOPRAZOLE 40 MG INJ VIAL IVP SCH (09:05)
[2021-12-22] MEDS: OXYBUTYNIN 5 MG TAB GT SCH (09:05)
[2021-12-22] MEDS: BACLOFEN 10 MG TAB GT SCH ×3 (09:06→17:11)
[2021-12-22] MEDS: GLYCOPYRROLATE 1 MG TAB GT SCH ×2 (09:07→20:59)
--- NOTE | 2021-12-22 09:09 | NUR ---
SCHEDULE MEDICATIONS GIVEN WITH EDUCATION. PATIENT TOLERATED WELL. HELD FLOMAX DUE TO UNABLE TO CRUSH OR CHEW MEDICATION. PATIENT RECEIVES MEDICATION THROUGH G-TUBE. PRECAUTION IN PLACE. CALL LIGHT WITHIN REACH. WILL CONTINUE TO MONITOR.
[2021-12-22] MEDS: INSULIN LANTUS 100 UNITS/ML 10 ML VIAL SUBQ SCH (09:12)
[2021-12-22] MEDS: VANCOMYCIN 1,000 MG in DEXTROSE 5% 250 ML IV SCH (09:25)
[2021-12-22 12:00] VITALS: BP 108/55
--- NOTE | 2021-12-22 12:46 | NUR ---
BS CHECK 164, 2UNITS INSULIN NEED TO COVER. PATIENT TOLERATED WELL. PRECAUTION IN PLACE. CALL LIGHT WITHIN REACH. WILL CONTINUE TO MONITOR.
[2021-12-22] MEDS: INSULIN LISPRO SLIDING SCALE 100 UNITS/ML VIAL SUBQ PRN (12:47)
--- NOTE | 2021-12-22 14:00 | NUR ---
PT ACCIDENTLY REMOVED IV. NEW IV INSERT ON LEFT FA 22G, WILL CONTINUE TO GIVE IVPB SCHEDULE. PATIENT TOLERATED WELL. NO SIGN OF DISTRESS NOTED. PRECAUTION IN PLACE. CALL LIGHT WITHIN REACH. WILL CONTINUE TO MONITOR.
[2021-12-22 16:00] VITALS: BP 105/57
--- NOTE | 2021-12-22 16:00 | NUR ---
PATIENT IS RESTING IN BED, CHEST RISE AND FALL NOTED. AROUSABLE TO VOICE. CALL LIGHT WITHIN REACH. WILL CONTINUE TO MONITOR.
--- NOTE | 2021-12-22 19:34 | NUR ---
ENDORSED PATIENT TO CLOTH COVERER FOR CONTINUITY OF CARE. PATIENT IS STABLE.
--- NOTE | 2021-12-22 19:34 | NUR ---
RECEIVED TUBE FEEDING FORMULA - OFF - WILL CHECK THE RESIDUAL . PT NID - O2 SAT WNL .
[2021-12-22 20:00] VITALS: BP 111/59
--- NOTE | 2021-12-22 21:00 | NUR ---
RESIDUAL 20CC - WILL CONT. TUBE FEEDING
[2021-12-23] VITALS: BP 90/60
--- NOTE | 2021-12-23 | NUR ---
ROUNDS , NID - O2 SAT WNL , ON TELE MONITOR . WILL CONT. TO MONITOR .
[2021-12-23] MEDS: PIPERACILLIN/TAZOBACTAM 2.25 GM in DEXTROSE 5% 50 ML IV SCH ×4 (00:15→17:25)
--- NOTE | 2021-12-23 02:00 | NUR ---
SLEEPING - ON TELE MONITOR .
[2021-12-23 04:00] VITALS: BP 105/60
--- NOTE | 2021-12-23 04:30 | NUR ---
ROUNDS , IV SITE INFILTRATED . REMOVED IV NEEDLE - INTACT NEEDLE , MIN . BLEEDING - WILL RE INSERT NEW IV SITE .
--- NOTE | 2021-12-23 04:50 | NUR ---
NEW IV SITE INSERTED - PT TOLERATED THE PROCEDURE . MIN. BLEEDING , WILL CONT. TO MONITOR .
--- NOTE | 2021-12-23 06:00 | NUR ---
AWAKE WATCHING TV .
[2021-12-23] MEDS: BLOOD GLUCOSE MONITORING 1 DEV DEV FS SCH ×4 (06:04→21:02)
[2021-12-23 06:49] LABS: BASOPHILS % (AUTO) 0.6 % (0.0-2.0); EOSINOPHILS # (AUTO) 0.2 K/uL (0-0.4); HEMATOCRIT 36.3 % (36-48); HEMOGLOBIN 11.4 g/dL (12.0-16.0); LYMPHOCYTES # (AUTO) 1.7 K/uL (2.5-16.5); LYMPHOCYTES % (AUTO) 35.2 % (20.5-51.1); MEAN CORPUSCULAR HEMOGLOBIN 27 pg (27-31); MEAN CORPUSCULAR HGB CONC 32 g/dL (33-37); MEAN CORPUSCULAR VOLUME 84.1 fL (80-94); MONOCYTES # (AUTO) 0.4 K/uL (0.8-1.0); MONOCYTES % (AUTO) 8.6 % (1.7-9.3); NEUTROPHILS # (AUTO) 2.4 K/uL (1.8-7.7); NEUTROPHILS % (AUTO) 51.2 % (42.2-75.2); PLATELET COUNT (AUTO) 332 K/uL (140-450); RED BLOOD CELL COUNT(AUTO) 4.32 MIL/uL (4.20-5.40); RED CELL DISTRIBUTION WIDTH 20.2 % (11.6-13.7); WHITE BLOOD COUNT (AUTO) 4.7 K/uL (4.8-10.8)
--- NOTE | 2021-12-23 07:30 | NUR ---
ENDORSED - PT - STABLE .
[2021-12-23 07:35] LABS: PHOSPHORUS 3.1 mg/dL (2.5-4.9)
[2021-12-23 07:56] LABS: ANION GAP 13.4 (8-16); CARBON DIOXIDE 23.7 mmol/L (21-32); CREATININE 0.9 mg/dL (0.6-1.3); POTASSIUM 3.1 mmol/L (3.5-5.1)
[2021-12-23 08:00] VITALS: BP 111/68
[2021-12-23 08:26] LABS: EOSINOPHILS % (AUTO) 4.4 % (0.0-4.0)
[2021-12-23] MEDS: ASPIRIN 81 MG TAB.CHEW GT SCH (08:50)
[2021-12-23] MEDS: TAMSULOSIN 0.4 MG CAP GT SCH (08:50)
[2021-12-23] MEDS: GLYCOPYRROLATE 1 MG TAB GT SCH ×2 (08:50→21:54)
[2021-12-23] MEDS: BACLOFEN 10 MG TAB GT SCH ×3 (08:50→17:25)
[2021-12-23] MEDS: OXYBUTYNIN 5 MG TAB GT SCH (08:50)
[2021-12-23] MEDS: PANTOPRAZOLE 40 MG INJ VIAL IVP SCH (08:50)
[2021-12-23] MEDS: INSULIN LANTUS 100 UNITS/ML 10 ML VIAL SUBQ SCH (08:53)
--- NOTE | 2021-12-23 08:55 | NUR ---
SCHEDULED MEDICATIONS DUE GIVEN. WILL CONTINUE TO MONITOR.
[2021-12-23] MEDS ORDERED: SCOPOLAMINE 1.5 MG/72 HR PATCH TD SCH (09:00)
[2021-12-23] MEDS ORDERED: VANCOMYCIN 1,000 MG in DEXTROSE 5% 250 ML IV SCH ×2 (11:20→22:00)
--- NOTE | 2021-12-23 11:28 | NUR ---
SCHEDULED MEDICATIONS DUE GIVEN. WILL CONTINUE TO MONITOR.
[2021-12-23] MEDS ORDERED: POTASSIUM CHLORIDE 20% 40 MEQ/15 ML UDC GT SCH (11:38)
[2021-12-23] MEDS ORDERED: [UNRECOGNIZED DRUG - CODE] PO (11:39)
[2021-12-23 12:00] VITALS: BP 115/69
[2021-12-23] MEDS: POTASSIUM CHL 20 MEQ/ 1/2 NS 1,000 ML IV SCH (12:30)
--- NOTE | 2021-12-23 12:30 | NUR ---
HOUSE SUP CALLED [facility] AND PATIENT HAS BED AVAILABLE. HOUSE SUP TO ARRANGE FOR TRANSPORTATION. WILL CONTINUE TO MONITOR.
[2021-12-23] MEDS: INSULIN LISPRO SLIDING SCALE 100 UNITS/ML VIAL SUBQ PRN (12:37)
--- NOTE | 2021-12-23 12:46 | NUR ---
SCHEDULED MEDICATIONS DUE GIVEN. WILL CONTINUE TO MONITOR.
--- NOTE | 2021-12-23 13:48 | NUR ---
DISCHARGE INSTRUCTIONS PROVIDED TO PATIENT IN PREFERRED LANGUAGE OF KENYAN. INSTRUCTIONS ON FOLLOW-UP WITH MD AT FACILITY, NEW/CHANGED MEDICATION REGIMEN, DIET REGIMEN, AND DISEASE MANAGEMENT OF PNEUMONIA. VERBALIZED UNDERSTANDING. REINFORCEMENT NEEDED. [facility] ASKED TO FAX H&P, MEDICATION LIST, AND DISCHARGE ORDER TO [phone]. WILL FAX.
--- NOTE | 2021-12-23 14:27 | NUR ---
[facility] CALLED BACK. PROVIDED AUTHORIZATION #[id number] FOR TRANSPORT.
--- NOTE | 2021-12-23 14:55 | NUR ---
CALLED [facility] FOR TRANSPORT. DOES NOT DO GURNEY TRANSPORT FOR NON-ACUTE PATIENTS
--- NOTE | 2021-12-23 15:00 | NUR ---
CALLED [facility]. NO SERVICE AVAILABLE FOR TODAY.
--- NOTE | 2021-12-23 15:05 | NUR ---
CALLED [facility]. NO SERVICE AVAILABLE FOR TRANSPORT UNTIL TOMORROW AFTERNOON
--- NOTE | 2021-12-23 15:11 | NUR ---
CALLED SON FROM [facility] TO RESERVE BED FOR PATIENT. CM CAN CONTACT HER AT [phone].
[2021-12-23 16:00] VITALS: BP 115/59
--- NOTE | 2021-12-23 17:25 | NUR ---
SCHEDULED MEDICATIONS DUE GIVEN. WILL CONTINUE TO MONITOR.
--- NOTE | 2021-12-23 19:20 | NUR ---
GAVE REPORT TO INSTALLATION SPECIALIST NURSE. PATIENT IN STABLE CONDITION.
[2021-12-23 20:00] VITALS: BP 110/60
[2021-12-24] VITALS: BP 124/60
[2021-12-24] MEDS ORDERED: AMOXIL/CLAVULANATE 875/125 MG 1 TAB ONE
--- NOTE | 2021-12-24 | NUR ---
INFORM DR. POTTER PT IS STILL IN DUE TO NO TRANSPORT AVAILABLE - DR POTTER MADE NEW ORDER ABOUT ABX.
--- NOTE | 2021-12-24 00:55 | NUR ---
AMOXCLAV 875MG/TAB GIVEN PER GT INITIAL DOSE . WILL CONT. TO MONITOR
[2021-12-24 04:00] VITALS: BP 118/72
--- NOTE | 2021-12-24 04:00 | NUR ---
ROUNDS , NO S/SX OF ACUTE DISTRESS , WILL CONT. TO MONITOR .
[2021-12-24] MEDS: POTASSIUM CHL 20 MEQ/ 1/2 NS 1,000 ML IV SCH (05:10)
[2021-12-24] MEDS: BLOOD GLUCOSE MONITORING 1 DEV DEV FS SCH ×2 (05:51→12:10)
[2021-12-24 07:05] LABS: ANION GAP 13.7 (8-16); CREATININE 0.8 mg/dL (0.6-1.3); POTASSIUM 3.7 mmol/L (3.5-5.1)
[2021-12-24 07:22] LABS: BASOPHILS % (AUTO) 0.6 % (0.0-2.0); EOSINOPHILS # (AUTO) 0.2 K/uL (0-0.4); EOSINOPHILS % (AUTO) 4.3 % (0.0-4.0); HEMATOCRIT 34.6 % (36-48); LYMPHOCYTES # (AUTO) 1.6 K/uL (2.5-16.5); LYMPHOCYTES % (AUTO) 29.1 % (20.5-51.1); MEAN CORPUSCULAR HEMOGLOBIN 27 pg (27-31); MEAN CORPUSCULAR HGB CONC 32 g/dL (33-37); MEAN CORPUSCULAR VOLUME 84.1 fL (80-94); MONOCYTES # (AUTO) 0.5 K/uL (0.8-1.0); MONOCYTES % (AUTO) 9.5 % (1.7-9.3); NEUTROPHILS # (AUTO) 3.2 K/uL (1.8-7.7); NEUTROPHILS % (AUTO) 56.5 % (42.2-75.2); PLATELET COUNT (AUTO) 363 K/uL (140-450); RED BLOOD CELL COUNT(AUTO) 4.11 MIL/uL (4.20-5.40); RED CELL DISTRIBUTION WIDTH 20.6 % (11.6-13.7); WHITE BLOOD COUNT (AUTO) 5.7 K/uL (4.8-10.8)
--- NOTE | 2021-12-24 07:30 | NUR ---
RECEIVED REPORT FROM HAILY BURKS FOR CONTINUITY OF CARE. PT. ALERT, STABLE. NO DISTRESS NOTED. ALL SAFETY MEASURES IN PLACE. PT. DISCHARGE PALN TO TRANSFER BACK TO [facility]. WILL FOLLOWUP WITH DISCHARGE PROCESS
--- NOTE | 2021-12-24 07:30 | NUR ---
ENDORSED- PT - STABLE .
[2021-12-24 08:00] VITALS: BP 100/58
[2021-12-24] MEDS ORDERED: AMOXIL/CLAVULANATE 875/125 MG 1 TAB GT SCH (09:00)
[2021-12-24] MEDS ORDERED: AMOXIL/CLAVULANATE 500/125 MG 1 TAB PO SCH (09:00)
[2021-12-24] MEDS: ASPIRIN 81 MG TAB.CHEW GT SCH (09:30)
[2021-12-24] MEDS: OXYBUTYNIN 5 MG TAB GT SCH (09:30)
[2021-12-24] MEDS: BACLOFEN 10 MG TAB GT SCH (09:30)
[2021-12-24] MEDS: GLYCOPYRROLATE 1 MG TAB GT SCH (09:30)
[2021-12-24] MEDS: INSULIN LANTUS 100 UNITS/ML 10 ML VIAL SUBQ SCH (09:30)
[2021-12-24] MEDS: TAMSULOSIN 0.4 MG CAP GT SCH (09:30)
[2021-12-24] MEDS: PANTOPRAZOLE 40 MG INJ VIAL IVP SCH (09:30)
--- NOTE | 2021-12-24 09:30 | NUR ---
PT. ALERT,STABLE ON ROOM AIR. NO DISTRESS NOTED. SAFETY MEASURES IN PLACE. ADMINISTERED SCHEDULED MEDICATION. PT. TOLERATED WELL. WILL CONTINUE TO MONITOR THE PT.
--- NOTE | 2021-12-24 10:02 | NUR ---
WOUND CARE EVALUATION NOTE: SKIN ASSESSMENT DONE ON THIS 61 Y/O PT. PT ADMITTED WITH DTI TO RIGHT HEEL. PT IS AWAKE, LIPS DRY, CONTRACTURES TO BILATERAL LOWER EXTREMITIES. OLD HEALED SCAR TISSUE TO LEFT TROCHANTER. INCONTINENT BOWEL AND BLADDER,SKIN MOIST INTACT. GT SITE, EARNEST-STOMA SKIN DRY INTACT.PT. SIDE LYING WITH OFFLOADING ON SACRALCOCCYX AND HEELS PROTECTORS IN PLACE. PRIMARY RN AT BED SIDE POC DISCUSSED. -RIGHT HEEL DTI 5X6CM BLOODY INTACT BLISTERING SKIN.EARNEST-WOUND SKIN DRY SCALY SKIN. -LEFT HEEL 2X2 BLANCHABLE REDNESS, SKIN INTACT. RECOMMENDATIONS: -APPLY SKIN PREP WIPE TO BILATERAL HEELS BID AND TURBINE INSPECTOR -TURN AND REPOSITION PATIENT Q 2H -INSPECT SKIN UNDER AND AROUND MEDICAL DEVICES. -ASSESS AND MONITOR SKIN CONDITION DURING POSITION CHANGE -OFFLOAD BILATERAL HEELS BY PLACING PILLOWS UNDER CALVES AT ALL TIMES, UNLESS OTHERWISE CONTRAINDICATED -APPLY HEEL PROTECTORS -PRESSURE REDISTRIBUTION SURFACE AND OFFLOADING SACRALCOCCYX -MANAGE FRICTION AND SHEAR BY USING LIFT SHEET TO REPOSITION PATIENT -HOB 30 DEGREE TOLERATE -PLEASE FOLLOW RD RECOMMENDATIONS PLEASE NOTIFIED WOUND CARE NURSE FOR ANY CHANGE OF SKIN CONDITION
[2021-12-24 10:58] VITALS: BP 100/58
--- NOTE | 2021-12-24 11:00 | NUR ---
PT. BEING DISCHARGE TO [facility] BACK TO FACILITY. REPORT GIVEN TO HAILY LUDWIG. .
[2021-12-24 11:12] VITALS: BP 100/58
[2021-12-24 12:00] VITALS: BP 102/70
--- NOTE | 2021-12-24 13:21 | NUR ---
PATIENT DISCHARGED TO [facility] . PT. AMEYA,STABLE UPON DISCHARGED. NO DISTRESS NOTED. PICKED UP PT. VIA GURNEY BY 2 AMBULANCE PERSONNEL FROM [facility].
--- NOTE | 2021-12-24 15:49 | NUR ---
LATE ENTRY- IV NORMAL SALINE DISCONTINUED AT 2108. PIPERACILLIN DISCONTINUED AT 1913. VANCOMYCIN DISCONTINUED AT 2108.
== END 2021-12-24 13:20 | DRG 871 ==
LOC: MED 17:08 → MTU 19:16
PROVIDERS: ADMIT Hospitalist; ATTEND Hospitalist
DX: A41.9 Sepsis, unspecified organism (principal); J69.0 Pneumonitis due to inhalation of food and vomit; G93.41 Metabolic encephalopathy; J96.01 Acute respiratory failure with hypoxia; E43 Unspecified severe protein-calorie malnutrition; R53.2 Functional quadriplegia; R65.20 Severe sepsis without septic shock; D64.9 Anemia, unspecified; R13.10 Dysphagia, unspecified; G35 Multiple sclerosis; E83.42 Hypomagnesemia; E87.6 Hypokalemia; Z20.822 Contact with and (suspected) exposure to COVID-19; Z79.1 Long term (current) use of non-steroidal anti-inflammatories (NSAID); Z79.899 Other long term (current) drug therapy; Z79.82 Long term (current) use of aspirin; Z68.20 Body mass index [BMI] 20.0-20.9, adult
CPT/HCPCS: 36415; 36600; 71045; 80048; 80053; 80202; 81001; 82550; 82553; 82803; 82948; 83605; 83735; 83880; 84100; 84484; 85025; 85610; 85730; 87040; 87081; 87086; 93005; 96365; 96366; 96367; 99291; C9113; J1644; J1815; J2001; J2543; J3370; J3480; J7030; J7060; Q0092

== ENCOUNTER 2021-12-31 12:34 | Emergency (ER) | payer OTHER ==
[~2021-12-31] VITALS: Ht 157.5 cm; Wt 54.4 kg
[~2021-12-31 12:34] MED LIST changes: -ACET-9882 GT; -AMOX-999 PO; +[UNRECOGNIZED DRUG - CODE] PO
[2021-12-31 12:36] VITALS: BP 131/78
--- NOTE | 2021-12-31 13:10 | NUR ---
61 y/o Female BIBA for coffee ground emesis x 2 days. Placed pt on monitor, SKIN IS PINK/WARM/DRY; AAOX1 PT IS BED BOUND, LUNGS CLEAR BL; HR EVEN AND REGULAR TACHY ON THE MONITOR; VSS; GT in place, feeding was stopped on 12/29 per facility. Contractures noted. Pt is unable to rate pain but grimmaces when abd is palpated. PATIENT POSITIONED FOR COMFORT; HOB ELEVATED; BEDRAILS UP X2; BED DOWN. ER MD MADE AWARE OF PT STATUS. Pmhx: Anemia, UTI, quadriplegiaq, dysphagia, MS, TIA, COVID, Contractures Allergies: None Home meds: See chartPATIENT
[2021-12-31 14:00] LABS: BASOPHILS # (AUTO) 0.1 K/uL (0.00-0.22); BASOPHILS % (AUTO) 1.4 % (0.0-2.0); EOSINOPHILS # (AUTO) 0.2 K/uL (0-0.4); EOSINOPHILS % (AUTO) 2.4 % (0.0-4.0); HEMATOCRIT 42.6 % (36-48); LYMPHOCYTES # (AUTO) 2.7 K/uL (2.5-16.5); LYMPHOCYTES % (AUTO) 31.5 % (20.5-51.1); MEAN CORPUSCULAR HEMOGLOBIN 27 pg (27-31); MEAN CORPUSCULAR HGB CONC 33 g/dL (33-37); MEAN CORPUSCULAR VOLUME 83.6 fL (80-94); MONOCYTES # (AUTO) 0.8 K/uL (0.8-1.0); MONOCYTES % (AUTO) 8.8 % (1.7-9.3); NEUTROPHILS # (AUTO) 4.8 K/uL (1.8-7.7); NEUTROPHILS % (AUTO) 55.9 % (42.2-75.2); PLATELET COUNT (AUTO) 576 K/uL (140-450); RED CELL DISTRIBUTION WIDTH 20.7 % (11.6-13.7); WHITE BLOOD COUNT (AUTO) 8.7 K/uL (4.8-10.8)
[2021-12-31 14:15] LABS: ALBUMIN 2.8 g/dL (3.4-5.0); ANION GAP 15.7 (8-16); CARBON DIOXIDE 24.4 mmol/L (21-32); MAGNESIUM 2.4 mg/dL (1.8-2.4); PHOSPHORUS 3.9 mg/dL (2.5-4.9); POTASSIUM 4.1 mmol/L (3.5-5.1); TOTAL BILIRUBIN 0.5 mg/dL (0.0-1.0)
--- NOTE | 2021-12-31 14:20 | NUR ---
WALKED LILIAM SWAB TO LAB
--- NOTE | 2021-12-31 14:28 | NUR ---
PT TAKEN TO CT VIA GUREKTA AND PAROLE DIRECTOR, FOR CT ABD PELVIS WITHOUT
--- NOTE | 2021-12-31 14:40 | NUR ---
PT BACK FROM CT, PT PLACED BACK ON VS MONITOR.
--- NOTE | 2021-12-31 14:50 | NUR ---
URINE WALKED DOWN TO LAB
[2021-12-31 15:32] LABS: APPEARANCE,URINE CLOUDY (CLEAR); BILIRUBIN,URINE NEGATIVE (NEGATIVE); BLOOD, URINE 3+ (NEGATIVE); COLOR,URINE YELLOW (YELLOW); NITRITE, URINE NEGATIVE (NEGATIVE); PH,URINE 6.5 (5.0-9.0); UGLUCOSE NEGATIVE (NEGATIVE)
[2021-12-31 15:33] LABS: LEUKOCYTE ESTERASE ,URINE 3+ (NEGATIVE)
[2021-12-31 15:37] LABS: RBC,URINE TOO NUMEROUS TO COUN /HPF (0-5)
[2021-12-31 15:38] LABS: WBC,URINE TOO MANY TO COUNT /HPF (0-5)
[2021-12-31] MEDS ORDERED: POLYETHYLENE GLYCOL 17 GM/PKT GT ONE (16:45)
--- NOTE | 2021-12-31 17:30 | NUR ---
SPOKE TO SONIA JOHANSEN WHO IS TAKING CARE OF PT AT [facility] TO UPDATE HER THAT IT IS DR ROGERS INTENT TO SEND HER BACK TO THEIR FACILITY. ALSO UPDATED THE PT'S SON DEMETRY AND TOLD HIM DR ROGERS'S PLAN.
[2021-12-31] MEDS ORDERED: POLYETHYLENE GLYCOL 17 GM/PKT ONE (17:51)
--- NOTE | 2021-12-31 17:54 | NUR ---
CT VERIFIED PLACEMENT OF GTUBE DR ROGERS VERBALIZED OK TO USE FOR MEDS
--- NOTE | 2021-12-31 17:58 | NUR ---
NO RISIDUAL FROM 20 TELUGU GTUBE, CHECKED FOR BOWEL SOUNDS WHICH ARE PRESENT, ASPIRATION PERCAUTIONS IN PLACE, ABDOMIN SOFT, RIGHT SIDED TENDERNESS NOTED.
[2021-12-31] MEDS ORDERED: MIRABULK GT (18:20)
[2021-12-31] MEDS ORDERED: GLYPS RC (18:20)
[2021-12-31 18:33] VITALS: BP 118/77
--- NOTE | 2021-12-31 18:33 | NUR ---
Patient discharged with v/s stable. Written and verbal after care instructions given and explained. Patient alert, oriented and verbalized understanding of instructions. Ambulance Transport with to halfway. All questions addressed prior to discharge. ID band removed. Patient advised to follow up with PMD. Rx of glycerin given. Patient educated on indication of medication including possible reaction and side effects. Opportunity to ask questions provided and answered.
== END 2021-12-31 18:33 | disposition home or self-care (01) ==
LOC: MED 12:34
DX: K92.2 Gastrointestinal hemorrhage, unspecified (principal); E11.9 Type 2 diabetes mellitus without complications; F03.90 Unspecified dementia, unspecified severity, without behavioral disturbance, psychotic disturbance, mood disturbance, and anxiety; Z79.899 Other long term (current) drug therapy; Z20.822 Contact with and (suspected) exposure to COVID-19
CPT/HCPCS: 36415; 80053; 81001; 83690; 83735; 84100; 84484; 85025; 87086; 93005; 99285

== ENCOUNTER 2022-05-01 18:59 | Inpatient (IN) | payer OTHER ==
[~2022-05-01] VITALS: Ht 177.8 cm; Wt 68.0 kg
[~2022-05-01 18:59] MED LIST changes: +GLYPS RC
[2022-05-01 19:05] VITALS: BP 128/82
[2022-05-01] MEDS ORDERED: PIPERACILLIN/TAZOBACTAM 3.375 GM in DEXTROSE 5% 50 ML IV ONE (19:20)
[2022-05-01] MEDS ORDERED: NACL 0.9% 500 ML IV ONE (19:20)
[2022-05-01] MEDS ORDERED: VANCOMYCIN PER PHARMACY MC PRN (19:20)
[2022-05-01] MEDS ORDERED: VANCOMYCIN 1GM/DEXT 5% PREMIX 200 ML IV ONE (19:20)
--- NOTE | 2022-05-01 19:29 | NUR ---
EXCHANGE TROUBLE SHOOTER AT BEDSIDE
[2022-05-01 19:45] LABS: BASOPHILS # (AUTO) 0.1 K/uL (0.00-0.22); BASOPHILS % (AUTO) 0.5 % (0.0-2.0); EOSINOPHILS # (AUTO) 0.2 K/uL (0-0.4); EOSINOPHILS % (AUTO) 1.5 % (0.0-4.0); HEMATOCRIT 31.5 % (36-48); HEMOGLOBIN 9.9 g/dL (12.0-16.0); LYMPHOCYTES # (AUTO) 2.9 K/uL (2.5-16.5); LYMPHOCYTES % (AUTO) 19.5 % (20.5-51.1); MEAN CORPUSCULAR HEMOGLOBIN 26 pg (27-31); MEAN CORPUSCULAR HGB CONC 32 g/dL (33-37); MEAN CORPUSCULAR VOLUME 82.9 fL (80-94); MONOCYTES # (AUTO) 0.8 K/uL (0.8-1.0); MONOCYTES % (AUTO) 5.4 % (1.7-9.3); NEUTROPHILS # (AUTO) 10.8 K/uL (1.8-7.7); NEUTROPHILS % (AUTO) 73.1 % (42.2-75.2); PLATELET COUNT (AUTO) 526 K/uL (140-450); RED BLOOD CELL COUNT(AUTO) 3.79 MIL/uL (4.20-5.40); RED CELL DISTRIBUTION WIDTH 18.3 % (11.6-13.7); WHITE BLOOD COUNT (AUTO) 14.7 K/uL (4.8-10.8)
[2022-05-01 20:04] LABS: ANION GAP 8.6 (8-16); CARBON DIOXIDE 29.4 mmol/L (21-32); CREATININE 1.4 mg/dL (0.6-1.3); TOTAL BILIRUBIN 0.5 mg/dL (0.0-1.0)
[2022-05-01] MEDS ORDERED: VANCOMYCIN 1,000 MG VIAL ONE (20:06)
[2022-05-01] MEDS ORDERED: PIPERACILLIN/TAZOBACTAM 3.375 GM VIAL IV ONE (20:06)
[2022-05-01 20:07] LABS: PROTHROMBIN TIME 11.3 secs (10.8-13.4)
--- NOTE | 2022-05-01 21:27 | NUR ---
LOG RAFT WORKER AT BEDSIDE OBTAINING REPEAT TROPONIN
--- NOTE | 2022-05-01 21:27 | NUR ---
PT RETURNED FROM CT
--- NOTE | 2022-05-01 21:27 | NUR ---
RT AT BEDSIDE OBTAINING ABG
[2022-05-01 21:50] LABS: BILIRUBIN,URINE NEGATIVE (NEGATIVE); BLOOD, URINE 2+ (NEGATIVE); LEUKOCYTE ESTERASE ,URINE 3+ (NEGATIVE); NITRITE, URINE NEGATIVE (NEGATIVE); UGLUCOSE NEGATIVE (NEGATIVE)
--- NOTE | 2022-05-01 21:51 | NUR ---
ADRIANA/LILIAM COLLECTED AND WALKED TO LAB
[2022-05-01 21:54] LABS: APPEARANCE,URINE HAZY (CLEAR); COLOR,URINE STRAW (YELLOW)
[2022-05-01 21:55] LABS: RBC,URINE 11-20 (MOD) /HPF (0-5); WBC,URINE 80-100 /HPF (0-5)
--- NOTE | 2022-05-01 22:47 | NUR ---
RECIEVED CALL FROM AFTER HOURS PHARMACY TO CLARIFY ZOSYN ORDER. DR ALBRECHT OK TO CHANGE ORDER TO ZOSYN 3.375MG Q6 TO MEET CREATININE PROTOCOL.
--- NOTE | 2022-05-01 22:55 | NUR ---
62 y/o female biba from [facility], staff reports pt has been having uti and fever 105 at facility. was told to transfer here per pcp of pt to be worked up for sepsis. A/OX1, GCS-14; NONAMBULATORY WITH CONTRACTURES; UNLABORED BREATHING; G-TUBE, GARZA CATHETER, AND SINGLE LUMEN R IGHT UPPER ARM PICC. pmh: uti, htn, heart failure, ESBL, multiple sclerosis, dm2, muscle spams, overactive bladder, obstructive/reflux renopathy, acute pyelonephritis, dysphagia, cerebrovascular disease nka med: see list FULL CODE
[2022-05-01] MEDS: NACL 0.9% 1,000 ML IV SCH (23:47)
--- NOTE | 2022-05-02 00:02 | NUR ---
Patient will be admitted to care of DR ALBRECHT. Admited to TELE. Will go to room 107A. Belongings list completed. Report to HAILY FLOWERS.
[2022-05-02 00:15] VITALS: BP 103/56
--- NOTE | 2022-05-02 00:15 | NUR ---
Admitted from ER TO TELEMETRY UNITFROM SNF, with chief complaint of FEVER. AWAKE, A/OX1. 62 y/o ,Female, Cooperative. RESPIRATION EVEN AND UNLABORED. WITH RHONCHI ON BILATERAL LUNG AUSCULTATION. NO COUGHING NOTED BUT PATIENT DROOLS A LOT. ABDOMEN SOFT NON-TENDER TO TOUCH BUT WITH SOME DISTENTION. POSITIVE BOWEL SOUNDS ON ALL QUADRANTS. WITH GT IN PLACED, NOTED WOUND IN THE GT SITE. WITH BILATERAL LE CONTRACTURES. PATIENT IS QUADRIPLEGIC. WITH RIGHT NEPHROSTOMY TUBE DRAINING CLEAR FLUIDS MINIMAL AMOUNT. F/C PATENT DRAINING CLEAR YELLOW URINE. IV OF NS INFUSING AT 100 ML/HR RIGHT UPPER ARM PICC LINE. oriented to call light, bed, phone,television, bathroom, smoking policy,visiting hours, procedures, ID bracelet on. Belongings list checked.
--- NOTE | 2022-05-02 00:20 | NUR ---
Patient's Plan of Care was discussed and reviewed with MALAIKA: AMANDA
[2022-05-02] MEDS ORDERED: PIPERACILLIN/TAZOBACTAM 3.375 GM VIAL IV ONE (02:12)
[2022-05-02] MEDS: PIPERACILLIN/TAZOBACTAM 3.375 GM in DEXTROSE 5% 50 ML IV SCH ×4 (02:28→22:01)
[2022-05-02 04:00] VITALS: BP 101/58
--- NOTE | 2022-05-02 04:00 | NUR ---
NO DRAINAGE NOTED IN THE RIGHT NEPHROSTOMY TUBE. F/C WITH OUTPUT OF 700 ML URINE.
[2022-05-02] MEDS ORDERED: PIPERACILLIN/TAZOBACTAM 2.25 GM in DEXTROSE 5% 50 ML IV SCH (05:00)
--- NOTE | 2022-05-02 07:00 | NUR ---
SLEEPING COMFORTABLY IN BED. RESPIRATION EVEN AND UNLABORED. CONDITION REMAIN STABLE. WILL ENDORSE TO AM SHIFT NURSE FOR CONTINUITY OF CARE.
--- NOTE | 2022-05-02 07:21 | NUR ---
RECEIVED REPORT FROM SANITATION SUPERINTENDENT NURSE FOR CONTINUITY OF CARE, POC DISCUSSED. PT IS ASLEEP IN BED WITH NO ACUTE S/S OF DISTRESS, ON RA WITH CHEST RISING AND FALLING EVEN AND UNLABORED. GARZA IN PLACE DRAINING CLEAR YELLOW URINE, NEPHRO TUBE ON RIGHT FLANK, UPPER RIGHT PICC LINE RUNNING NS @ 100. GTUBE IN PLACE WITH NEW DRESSING, WOUND EVAL ORDERED. ALL SAFETY MEASURES IN PLACE, CALL LIGHT WITHIN REACH. WILL CONTINUE TO MONITOR.
[2022-05-02 08:00] VITALS: BP 109/50
[2022-05-02] MEDS: NACL 0.9% 1,000 ML IV SCH (08:30)
--- NOTE | 2022-05-02 09:00 | NUR ---
JOSELYN MEDICATION ADMINISTERED PER MD ORDER, PT TOLERATED ADMINISTRATION. IV PATENT AND INTACT. ALERT AND ORIENTED X2. LUNG SOUNDS CLEAR, BOWEL SOUND ACTIVE IN ALL 4 QUAD, GTUBE NOTED TO HAVE PURULENT DRAINAGE, NEPHRO TUBE WITH NO DRAINAGE, GARZA DRAINING CLEAR YELLOW URINE. RIGHT HEEL WOUND NOTED WITH SEVERAL PRESSURE ULCER SCARS. ALL SAFETY MEASURES IN PLACE, CALL LIGHT WITHIN REACH. WILL CONTINUE TO MONITOR.
--- NOTE | 2022-05-02 09:09 | NUR ---
PATIENT HAS BEEN SCREENED AND CATEGORIZED HIGH NUTRITION RISK. PATIENT WILL BE SEEN WITHIN 1-2 DAYS OF ADMISSION. REFERRAL RECEIVED FOR TUBE FEEDING MILE [address]
[2022-05-02 09:23] LABS: BASOPHILS # (AUTO) 0.2 K/uL (0.00-0.22); BASOPHILS % (AUTO) 2.5 % (0.0-2.0); EOSINOPHILS # (AUTO) 0.4 K/uL (0-0.4); EOSINOPHILS % (AUTO) 3.7 % (0.0-4.0); HEMATOCRIT 27.9 % (36-48); HEMOGLOBIN 8.8 g/dL (12.0-16.0); LYMPHOCYTES # (AUTO) 1.4 K/uL (2.5-16.5); MEAN CORPUSCULAR HEMOGLOBIN 27 pg (27-31); MEAN CORPUSCULAR HGB CONC 32 g/dL (33-37); MEAN CORPUSCULAR VOLUME 85.3 fL (80-94); MONOCYTES # (AUTO) 0.5 K/uL (0.8-1.0); MONOCYTES % (AUTO) 4.9 % (1.7-9.3); NEUTROPHILS % (AUTO) 73.9 % (42.2-75.2); PLATELET COUNT (AUTO) 446 K/uL (140-450); RED BLOOD CELL COUNT(AUTO) 3.28 MIL/uL (4.20-5.40); WHITE BLOOD COUNT (AUTO) 9.5 K/uL (4.8-10.8)
[2022-05-02] MEDS ORDERED: POTASSIUM CHLORIDE 10 MEQ TABER PO PRN ×2 (09:25→16:25)
[2022-05-02] MEDS ORDERED: MAG SULF 2000 MG/WATER PREMIX 50 ML IV PRN ×2 (09:25→16:25)
[2022-05-02 09:36] LABS: ANION GAP 8.1 (8-16); CREATININE 1.1 mg/dL (0.6-1.3); POTASSIUM 3.1 mmol/L (3.5-5.1)
--- NOTE | 2022-05-02 10:25 | NUR ---
BRITTANY, SON, CALLED ASKING FOR UPDATE. UPDATE GIVEN AND ALL QUESTIONS ANSWERED. PT STATED HE WILL BE BY HIS PHONE ALL DAY IN ORDER TO OBTAIN CONSENT WITH THE RADIOLOGIST.
--- NOTE | 2022-05-02 11:15 | NUR ---
DR. FABIAN, RADIOLOGIST, REQUESTING TO SPEAK WITH NEPHRO DR BELL, PHONE NUMBER GIVEN TO DR. BOYER.
--- NOTE | 2022-05-02 11:31 | NUR ---
RADIOLOGIST CALLED STATING IR NEPHRO TUBE INSERTION WILL BE PLACED ON HOLD UNTIL FURTHER NOTICE.
[2022-05-02 12:00] VITALS: BP 109/50
--- NOTE | 2022-05-02 14:05 | NUR ---
NEW SUCTION CANISTER PLACED FOR PUREE WICK SURGERY. PT REPORTS ALL OTHER NEEDS ARE CURRENTLY BEING MET. SON AT BEDSIDE. ALL SAFETY MEASURES IN PLACE, CALL LIGHT WITHIN REACH. WILL CONTINUE TO MONITOR. Addendum: 05/02/22 at 1511 by Moni Muñoz RN WRONG PT
--- NOTE | 2022-05-02 14:29 | NUR ---
05/02/22 RD INITIAL ASSESSMENT COMPLETED PLEASE REFER TO NUTRITION ASSESSMENT UNDER CARE ACTIVITY FOR ESTIMATED NUTRITIONAL NEEDS. 1. WHEN/IF MEDICALLY APPROPRIATE, RECOMMEND GLUCERNA 1.2 WITH A GOAL RATE OF 55 ML/HR -FWF: 150 ML Q6H OR PER MD -START AT 20 ML/HR AND INCREASE BY 10 ML Q4H TOLERATED -WILL PROVIDE 1584 KCAL AND 79 GM PROTEIN, MEETING 93% ESTIMATED KCAL AND 100% ESTIMATED PROTEIN NEEDS; ADEQUATE 2. RD TO FOLLOW-UP 2-3 DAYS, HIGH RISK MILE FRANK RD
--- NOTE | 2022-05-02 15:11 | NUR ---
DR BOYER STATED PT IS UNABLE TO RECEIVE IR HERE, NEEDS TO BE TRANSFERRED. DR ALBRECHT STATED SHE WILL DISCUSS PLAN WITH DR BOYER. PENDING NEW ORDERS
[2022-05-02 16:00] VITALS: BP 101/46
[2022-05-02] MEDS ORDERED: MAGNESIUM HYDROXIDE 2400 MG/30 ML UDC GT PRN (16:20)
[2022-05-02] MEDS ORDERED: bisacodyL 10 MG SUPP RC SCH (16:20)
--- NOTE | 2022-05-02 16:23 | NUR ---
RADIOLOGY CALLED STATING THEY ARE DOING THE PROCEDURE HERE, STATED THEY WILL CALL ONCE RADIOLOGIST IS HERE TO OBTAIN CONSENT.
[2022-05-02] MEDS ORDERED: MELATONIN 3 MG TAB PO PRN (16:35)
[2022-05-02] MEDS ORDERED: MIDAZOLAM 2 MG/2 ML VIAL ONE (16:37)
[2022-05-02] MEDS ORDERED: fentaNYL citrate 0.05 MG/ML VIAL ONE ×2 (16:38)
--- NOTE | 2022-05-02 16:38 | NUR ---
FAMILY MEMBERS WHO WILL BE GIVEN TELEPHONE CONSENT, PHONE NUMBER GIVEN TO RADIOLOGY FOR CONSENT, STATED OR NURSE WILL OBTAIN CONSENT WITH RADIOLOGIST.
[2022-05-02] MEDS: BACLOFEN 10 MG TAB GT SCH (17:00)
[2022-05-02] MEDS ORDERED: LIDOCAINE 1% 500 MG/50 ML VIAL ONE (17:02)
--- NOTE | 2022-05-02 17:11 | NUR ---
DC PLANNING: THE PATIENT WAS BIB EMS FROM [facility] WITH C/O FEVER AND TACHYCARDIA WITH T-MAX 105. H/O DM, DEMENTIA AND MS, FUNCTIONAL QUADIPLEGIA. WBC'S 14.7, CT ABD/PELVIS SHOWS MALPOSITIONED RIGHT NEPHROSTOMY TUBE, RENAL AND URETERAL CALCULI WITH HYDRONEPHROSIS, POSSIBLE CYSTITIS, G-TUBE IN PLACE. UA +, STARTED ON FLOMAX, ZOSYN, UROLOGY CONSULT ORDERED. PLAN FOR REINSERTION OF NEPHROSTOMY TUBE BY IR. DC PLAN IS TO RETURN TO [facility] WHEN CLINICALLY STABLE, CM WILL FOLLOW.
--- NOTE | 2022-05-02 17:23 | NUR ---
OBTAINED TELEPHONE CONSENT WITH DR FABIAN WITH 2 RN VERIFICATION.
--- NOTE | 2022-05-02 18:57 | NUR ---
ALL NEEDS HAVE BEEN MET THROUGHOUT THE SHIFT, PT WILL BE ENDORSED TO TOBACCO STEMMER MACHINE NURSE.
--- NOTE | 2022-05-02 19:30 | NUR ---
RECEIVED PT FROM AM NURSE FOR CONTINUITY OF CARE. PT IS STABLE
[2022-05-02 20:00] VITALS: BP 117/68
[2022-05-02] MEDS ORDERED: NON-FORMULARY ITEM (Melatonin/Pyridoxine HCl (B6) (Melatonin 3 mg Tablet) 1 EACH) GT SCH (21:00)
[2022-05-02] MEDS: INSULIN LANTUS 100 UNITS/ML 10 ML VIAL SUBQ SCH (21:00)
--- NOTE | 2022-05-02 21:00 | NUR ---
AWAITING FOR PT TO BE PICKED UP FOR NEPHROSTOMY TUBE REINSERTION
--- NOTE | 2022-05-02 21:10 | NUR ---
PATIENT'S BLOOD GLUCOSE IS 84. DR ALBERTO SAID TO HOLD LANTUS INSULIN
[2022-05-02] MEDS: GLYCOPYRROLATE 1 MG TAB GT SCH (21:53)
--- NOTE | 2022-05-02 22:45 | NUR ---
CALLED RADIOLOGY DEPT TO CONFIRM IF THE PROCEDURE WILL BE DONE AND THEY SAID IT S GOING TO BE IN THE MORNING
[2022-05-03] VITALS: BP 96/65
--- NOTE | 2022-05-03 02:00 | NUR ---
PATIENT ASLEEP,RESPIRATIONS EVEN AND UNLABORED,NO DISTRESS NOTED
[2022-05-03] MEDS: PIPERACILLIN/TAZOBACTAM 3.375 GM in DEXTROSE 5% 50 ML IV SCH ×4 (02:40→20:32)
[2022-05-03 04:00] VITALS: BP 127/67
--- NOTE | 2022-05-03 06:07 | NUR ---
CLEANED AND REPOSITIONED ,NO DISTRESS NOTED. ALL SAFETY MEASURES IN PLACE
[2022-05-03 07:16] LABS: ANION GAP 11.8 (8-16)
[2022-05-03 07:20] LABS: MAGNESIUM 1.6 mg/dL (1.8-2.4)
[2022-05-03 07:28] LABS: BASOPHILS % (AUTO) 0.7 % (0.0-2.0); EOSINOPHILS # (AUTO) 0.3 K/uL (0-0.4); EOSINOPHILS % (AUTO) 4.6 % (0.0-4.0); HEMOGLOBIN 9.1 g/dL (12.0-16.0); LYMPHOCYTES # (AUTO) 1.8 K/uL (2.5-16.5); LYMPHOCYTES % (AUTO) 25.4 % (20.5-51.1); MEAN CORPUSCULAR HEMOGLOBIN 26 pg (27-31); MEAN CORPUSCULAR HGB CONC 31 g/dL (33-37); MEAN CORPUSCULAR VOLUME 83.6 fL (80-94); MONOCYTES # (AUTO) 0.3 K/uL (0.8-1.0); MONOCYTES % (AUTO) 4.4 % (1.7-9.3); NEUTROPHILS # (AUTO) 4.7 K/uL (1.8-7.7); NEUTROPHILS % (AUTO) 64.9 % (42.2-75.2); PLATELET COUNT (AUTO) 495 K/uL (140-450); RED BLOOD CELL COUNT(AUTO) 3.47 MIL/uL (4.20-5.40); RED CELL DISTRIBUTION WIDTH 17.8 % (11.6-13.7); WHITE BLOOD COUNT (AUTO) 7.2 K/uL (4.8-10.8)
--- NOTE | 2022-05-03 07:32 | NUR ---
RECEIVED REPORT FROM TUMOR REGISTRAR NURSE FOR CONTINUITY OF CARE. PT IS ASLEEP IN BED WITH NO ACUTE S/S OF DISTRESS, ON RA WITH CHEST RISING AND FALLING EVEN AND UNLABORED. GARZA IN PLACE DRAINING CLEAR YELLOW URINE, NEPHRO TUBE ON RIGHT FLANK MALFUNCTIONED, UPPER RIGHT PICC LINE RUNNING NS @ 100. GTUBE IN PLACE WITH DRESSING IN PLACE. HAS RIGHT KNEE DRESSING C/D/I. PLAN OF CARE DISCUSSED. ALL SAFETY MEASURES IN PLACE, CALL LIGHT WITHIN REACH. WILL CONTINUE TO MONITOR.
[2022-05-03 07:35] LABS: POTASSIUM 2.8 mmol/L (3.5-5.1)
[2022-05-03 08:00] VITALS: BP 133/68
[2022-05-03] MEDS: ASPIRIN 81 MG TAB.CHEW GT SCH (08:50)
[2022-05-03] MEDS: TAMSULOSIN 0.4 MG CAP GT SCH (08:51)
[2022-05-03] MEDS: POLYETHYLENE GLYCOL 17 GM/PKT GT SCH (08:51)
[2022-05-03] MEDS: OXYBUTYNIN 5 MG TAB GT SCH (08:51)
[2022-05-03] MEDS: BACLOFEN 10 MG TAB GT SCH ×3 (08:51→17:46)
[2022-05-03] MEDS: GLYCOPYRROLATE 1 MG TAB GT SCH ×2 (08:52→20:08)
[2022-05-03] MEDS ORDERED: INSULIN GLARGINE HUM REC ANLOG 5 UNIT SQ SCH (09:00)
--- NOTE | 2022-05-03 09:00 | NUR ---
ALL IV MEDS GIVEN. HELD GT TUBE MEDS DUE TO NPO DIET. PT IS STABLE. NO DISTRESS NOTED. WILL CONTINUE TO MONITOR.
[2022-05-03] MEDS ORDERED: POTASSIUM CHLORIDE 40 MEQ, LIDOCAINE MPF 1% 25 MG in NACL 0.9% 250 ML IV SCH (09:30)
--- NOTE | 2022-05-03 11:13 | NUR ---
WOUND CARE EVALUATION NOTE: SKIN ASSESSMENT DONE WITH THIS 62 Y/O PT. 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 GT SITE EARNEST-STOMA SKIN EROSION 1X1X0.1CM PINK AND MOIST, NO ODOR. PT. ADMITTED UN-STAGEABLE PRESSURE INJURY TO RIGHT LATERAL KNEE 2X1.5XM BROWN SCAB WITH EARNEST WOUND SKIN PINK HEALING SCAR TISSUE, AREA DRY. RIGHT NEPHROSTOMY TUBE PLACEMENT PROCEDURE IS SCHEDULE TODAY PER PRIMARY RN JACKIE. PT. WITH LOW MANSOOR SCALE AT HIGH RISK. POC DISCUSSED WITH PRIMARY RN. RECOMMENDATIONS: -ORAL CARE Q SHIFT -APPLY HYDRAGUARD TO B/L GROINS, MEDIAL THIGHS BID AND PRN IF SOILING -CLEANSE GT SITE EARNEST SKIN EROSION WITH NS, PAT DRY AND APPLY Z-GUARD COVER WITH DRY DRESSING QD AND PRN IF SOILING -PAINT RIGHT LATERAL KNEE SCAB WITH BETADINE SOLUTION,LET DRY AND COVER WITH FOAM DRESSING QD AND PRN IF SOILING -BILATERAL HEEL PROTECTORS AND OFFLOADING AREAS -POSITIONING: TURN AND REPOSITION PATIENT Q 2H OR SOONER USE PILLOWS TO KEEP BONY PROMINENCES FROM DIRECT CONTACT WITH SURFACES USE REPOSITIONING WEDGES TO PROVIDE 30-DEGREE ANGLE FOR SIDE LYING POSITIONS OFFLOADING OR FOAM DRESSING TO ALL TUBING TO PREVENT MEDICAL DEVICES RELATED PRESSURE INJURY -RE-EVALUATING AND MANAGING INCONTINENCE MONITOR SKIN CONDITION DURING POSITION CHANGE DO NOT MASSAGE REDNESS, BONY PROMINENCES FREQUENT EARNEST-CARE AND PROVIDE BARRIER CREAMS PRN IF SOILING MOISTURE CONTROL BY OFFER BED VUONG/URINAL /ABSORBENT PAD TO WICK AND HOLD MOISTURE KEEP SKIN DRY AND PROTECT FROM FRICTION -MANAGE FRICTION/SHEAR/MOBILITY KEEP HOB AT THE LOWEST LEVEL OF ELEVATION NO MORE THAN 30-DEGREE UNLESS OTHERWISE CONTRAINDICATED USE LIFT SHEET OR TRANSFER DEVICE TO MOVE PATIENT AND PREVENT LATERAL SHEER. PROTECT HEELS, ELBOWS BONY PROMINENCES WITH SKIN BERRIES OR FOAM DRESSING IF EXPOSED TO FRICTION OFFLOAD BILATERAL HEELS BY PLACING PILLOWS UNDER CALVES AT ALL TIMES, UNLESS OTHERWISE CONTRAINDICATED -PRESSURE REDISTRIBUTION SURFACE THERAPY MARIAM ISOFLEX HIEU MATTRESS -NUTRITION: PLEASE FOLLOW RD RECOMMENDATIONS AND OFFER NUTRITION SUPPLEMENTS IF ORDERED.
[2022-05-03] MEDS ORDERED: LIDOCAINE MPF 1% 5 ML ONE (11:54)
[2022-05-03 12:00] VITALS: BP 114/76
--- NOTE | 2022-05-03 12:15 | NUR ---
PATIENT AT CT DEPT FOR RIGHT NEPHROSTOMY PLACEMENT.
[2022-05-03] MEDS ORDERED: LIDOCAINE MPF 1% 10 ML ONE (12:27)
[2022-05-03] MEDS ORDERED: LIDOCAINE MPF 1% 10 MG/ML VIAL INJ SCH (12:45)
[2022-05-03] MEDS ORDERED: LIDOCAINE MPF 1% 10 MG/ML VIAL INJ PRN (14:25)
[2022-05-03] MEDS: Z-GUARD PASTE TP SCH (14:25)
[2022-05-03] MEDS: HYDRAGUARD CREAM TP SCH (14:25)
[2022-05-03] MEDS: GAUZE TP SCH (14:25)
--- NOTE | 2022-05-03 14:25 | NUR ---
PATIENT COMPLETED RIGHT NEPHROSTOMY TUBE PLACEMENT. TRANSPORTED BACK TO ROOM. WILL ASSESS POST/OP VS.
[2022-05-03 16:00] VITALS: BP 144/76
--- NOTE | 2022-05-03 17:50 | NUR ---
ALL SCHEDULED MEDS GIVEN. PT IS STABLE. NO DISTRESS NOTED. WILL CONTINUE TO MONITOR.
--- NOTE | 2022-05-03 19:30 | NUR ---
ENDORSED TO PRE PRESS MANAGER NURSE FOR CONTINUITY OF CARE. PT IS STABLE.
[2022-05-03 20:00] VITALS: BP 133/68
--- NOTE | 2022-05-03 20:00 | NUR ---
RECEIVED REPORT FROM AM HAILY MEJIA FOR CONTINUITY OF CARE. PT AWAKE, A&OX1 SAYS"THANK YOU AND OKAY." REPEATEDLY. RR EVEN AND UNLABORED WITH EQUAL CHEST RISE. DENIES PAIN. ON ROOM AIR. G-TUBE IS INTACT. PT'S SKIN IS INTACT BUT REDDENED IN HER GROIN AND SACRAL AREA. PT OFF LOADED PRESSURE AREAS. G- TUBE AND NEPHROSTOMY TUBE FLUSHED PER ORDER. NEPHROSTOMY OUTPUT RECORDED AT 1999 WAS 100CC SANGUINOUS DRAINAGE. GARZA CATHETER OUTPUT AT 1999: WAS 400CC CLEAR PHILLIP URINE. ALL SAFETY MEASURES IN PLACE. BED IN LOW AND LOCKED POSITION. WILL CONTINUE TO MONITOR.
[2022-05-03] MEDS: INSULIN LANTUS 100 UNITS/ML 10 ML VIAL SUBQ SCH (21:00)
--- NOTE | 2022-05-03 21:00 | NUR ---
FRANCIE PICC LINE FLUSHED AND PATENT. HS ZOSYN IVPB INFUSED. WITHOUT DIFFICULTY. BS= 76 LANTUS INSULIN HELD.
--- NOTE | 2022-05-03 21:30 | NUR ---
G-TUBE FEEDING STARTED PER ORDER: GLUCERNA 1.2 @50ML/HR 150CC FREE WATER FLUSH Q6HR. WILL CONTINUE TO MONITOR.
[2022-05-04 01:00] VITALS: BP 120/70
[2022-05-04] MEDS: HYDRAGUARD CREAM TP SCH ×2 (01:33→13:17)
[2022-05-04] MEDS: PIPERACILLIN/TAZOBACTAM 3.375 GM in DEXTROSE 5% 50 ML IV SCH ×3 (01:34→13:19)
[2022-05-04] MEDS ORDERED: POTASSIUM CHLORIDE 20% 40 MEQ/15 ML UDC GT PRN (01:55)
--- NOTE | 2022-05-04 02:00 | NUR ---
LAB K=2.8L 40MEQ ELIXIR GIVEN ORDERED VIA G-TUBE FOR K BELOW 3.5. MAGNESIUM SULFATE 2GM IN STERILE WATER 50ML IVPB INFUSED PER ORDER FOR MAGNESIUM BELOW 1.8. WILL CONTINUE TO MONITOR.
[2022-05-04 04:00] VITALS: BP 144/76
--- NOTE | 2022-05-04 06:00 | NUR ---
FREQ ROUNDS. PT RESTING IN BED.RR EVEN AND UNLABORED. DID MOUTH CARE BUT NEEDS MOISTURIZER FOR LIPS . DROOLS CLEAR SPUTUM . PARTIAL SPONGE BATH GIVEN. G-TUBE SITE DRESSING CHANGED. OLD DRESSING SATURATED WITH YELLOW MUSTARD COLORED MUCCOID DRAINAGE. Z PASTE APPLIED. GARZA CATHETER 400CC CLEAR BLOOD TINGED PHILLIP URINE. NEPHROSTOMY TUBE OUTPUT WAS 175CC SANGUINOUS FLUID. AM LABS DRAWN BY RN FROM PICC LINE. ALL SAFETY MEASURES IN PLACE. WILL CONTINUE WITH FREQ ROUNDS.
[2022-05-04 06:09] LABS: ANION GAP 9.8 (8-16); CARBON DIOXIDE 24.3 mmol/L (21-32); POTASSIUM 4.1 mmol/L (3.5-5.1)
[2022-05-04 06:10] LABS: MAGNESIUM 2.4 mg/dL (1.8-2.4); PHOSPHORUS 2.8 mg/dL (2.5-4.9)
[2022-05-04 06:11] LABS: BASOPHILS # (AUTO) 0.1 K/uL (0.00-0.22); BASOPHILS % (AUTO) 1.1 % (0.0-2.0); EOSINOPHILS # (AUTO) 0.2 K/uL (0-0.4); EOSINOPHILS % (AUTO) 3.4 % (0.0-4.0); HEMATOCRIT 28.6 % (36-48); HEMOGLOBIN 9.1 g/dL (12.0-16.0); LYMPHOCYTES # (AUTO) 1.4 K/uL (2.5-16.5); LYMPHOCYTES % (AUTO) 20.8 % (20.5-51.1); MEAN CORPUSCULAR HEMOGLOBIN 27 pg (27-31); MEAN CORPUSCULAR HGB CONC 32 g/dL (33-37); MEAN CORPUSCULAR VOLUME 83.6 fL (80-94); MONOCYTES # (AUTO) 0.6 K/uL (0.8-1.0); MONOCYTES % (AUTO) 8.5 % (1.7-9.3); NEUTROPHILS # (AUTO) 4.3 K/uL (1.8-7.7); NEUTROPHILS % (AUTO) 66.2 % (42.2-75.2); PLATELET COUNT (AUTO) 497 K/uL (140-450); RED BLOOD CELL COUNT(AUTO) 3.43 MIL/uL (4.20-5.40); WHITE BLOOD COUNT (AUTO) 6.6 K/uL (4.8-10.8)
--- NOTE | 2022-05-04 07:20 | NUR ---
ENDORSED PT TO AM RN FOR CONTINUITY OF CARE.PT IS STABLE. ALL NEEDS MET THROUGHOUT THE SHIFT.
--- NOTE | 2022-05-04 07:30 | NUR ---
RECEIVED REPORT FROM [facility] NURSE CAPONE. PATIENT IS ASLEEP BUT AROUSABLE. ALERT, ORIENTED X2. RESPOND TO VERBAL STIMULI. ABLE TO FOLLOW SIMPLE COMMAND. SPEECH CLEAR. NO SOB OR DIFFICULTY BREATHING NOTED. NO COUGHING OR CHEST CONGESTION NOTED. G-TUBE INTACT AND PATENT, PICC LINE TO (R) UPPER ARM PATENT, NO BLEEDING OR SWELLING NOTED. DRESSING IS CLEAN AND DRY. ALL SAFETY MEASURES IN PLACE. CALL LIGHT WITHIN REACH AND BED IN LOW POSITION. DENIES PAIN OR DISCOMFORT. ALL NEEDS MET AND ANTICIPATED.
[2022-05-04 08:00] VITALS: BP 142/93
[2022-05-04] MEDS ORDERED: GLYCERIN PEDIATRIC 1 SUPP RC SCH (09:00)
--- NOTE | 2022-05-04 09:25 | NUR ---
(05/04/22) RD FOLLOW UP COMPLETED PLEASE REFER TO NUTRITION PROGRESS NOTE UNDER CARE ACTIVITY FOR ESTIMATED NUTRITION NEEDS. RD RECOMMENDATIONS: 1. CONTINUE GLUCERNA 1.2 WITH A GOAL RATE OF 50 ML/HR -FWF: 150 ML Q6H OR PER MD -WILL PROVIDE 1200 ML TOTAL VOLUME, 1440 KCAL AND 72 GM PROTEIN, MEETING 85% ESTIMATED KCAL AND >100% ESTIMATED PROTEIN NEEDS; ADEQUATE 2. RD TO FOLLOW-UP 2-3 DAYS, HIGH RISK SHANNAN LEE MS, RDN
[2022-05-04] MEDS: OXYBUTYNIN 5 MG TAB GT SCH (09:27)
[2022-05-04] MEDS: POLYETHYLENE GLYCOL 17 GM/PKT GT SCH (09:40)
[2022-05-04] MEDS: ASPIRIN 81 MG TAB.CHEW GT SCH (09:44)
[2022-05-04] MEDS: TAMSULOSIN 0.4 MG CAP GT SCH (09:45)
[2022-05-04] MEDS: BACLOFEN 10 MG TAB GT SCH ×2 (09:46→13:00)
[2022-05-04] MEDS: GLYCOPYRROLATE 1 MG TAB GT SCH (09:46)
[2022-05-04 12:00] VITALS: BP 111/61
[2022-05-04] MEDS: Z-GUARD PASTE TP SCH (13:44)
[2022-05-04] MEDS: GAUZE TP SCH (13:44)
[2022-05-04 16:00] VITALS: BP 111/61
--- NOTE | 2022-05-04 16:35 | NUR ---
CALLED PT'S SON WITH NO PICKUP. CHARGE NURSE CONTACTED PT'S SON AND LEFT MESSAGE THAT PT IS GOING BACK TO [facility].
--- NOTE | 2022-05-04 16:58 | NUR ---
PT TRANSPORTED OUT BY [facility].
--- NOTE | 2022-05-04 17:49 | NUR ---
RECEIVED REPORT FROM LINSEY JOHANSEN. PT A/O X2 TO NAME AND . NO SOB OR RESPIRATORY DISTRESS. ON RA. BUSHRA PICC SINGLE LUMEN. GTUBE FEEDING WITH NO RESIDUAL. GLUCERNA 1.2 @ 50 ML/HR WITH H20 FLUSH 150 ML/Q.6HR. GARZA VIA GRAVITY. R NEPHROSTOMY TUBE DRAINING VIA GRAVITY. ORAL CARE PROVIDED. NEEDS ALL MET AT THIS TIME. SAFETY MEASURES IN PLACE. WILL CONTINUE TO MONITOR CLOSELY.
[2022-05-05] MEDS ORDERED: SCOPOLAMINE 1.5 MG/72 HR PATCH TD SCH (09:00)
== END 2022-05-04 16:55 | DRG 871 ==
LOC: MED 18:59 → MTU 21:44
DX: A41.9 Sepsis, unspecified organism (principal); N17.0 Acute kidney failure with tubular necrosis; E43 Unspecified severe protein-calorie malnutrition; G82.50 Quadriplegia, unspecified; E87.1 Hypo-osmolality and hyponatremia; T83.022A Displacement of nephrostomy catheter, initial encounter; E11.9 Type 2 diabetes mellitus without complications; F03.90 Unspecified dementia, unspecified severity, without behavioral disturbance, psychotic disturbance, mood disturbance, and anxiety; K59.00 Constipation, unspecified; N30.90 Cystitis, unspecified without hematuria; R13.10 Dysphagia, unspecified; G47.00 Insomnia, unspecified; Y83.8 Other surgical procedures as the cause of abnormal reaction of the patient, or of later complication, without mention of misadventure at the time of the procedure; I25.10 Atherosclerotic heart disease of native coronary artery without angina pectoris; N31.2 Flaccid neuropathic bladder, not elsewhere classified; D63.8 Anemia in other chronic diseases classified elsewhere; E87.6 Hypokalemia; K46.9 Unspecified abdominal hernia without obstruction or gangrene; K21.9 Gastro-esophageal reflux disease without esophagitis; E86.0 Dehydration; G35 Multiple sclerosis; Z20.822 Contact with and (suspected) exposure to COVID-19; Z79.82 Long term (current) use of aspirin; Y92.89 Other specified places as the place of occurrence of the external cause
CPT/HCPCS: 36415; 36600; 71045; 75989; 80048; 80053; 81001; 82550; 82553; 82803; 82948; 83605; 83735; 83874; 83880; 84100; 84484; 85025; 85610; 85730; 87040; 87081; 87086; 93005; 96365; 96366; 96367; 99291; 99292; J1644; J1815; J2001; J2250; J2543; J3010; J3370; J3475; J3480; J7030; J7060